=== PATIENT | female | born 1960 | race Caucasian/White ===

== ENCOUNTER 2024-10-07 10:25 | Observation (INO) | payer BC ==
[2024-10-07 11:19] LABS: Basophils % (A) 0 %; Eosinophils # (A) 0.1 k/uL (0-0.7); Eosinophils % (A) 1 %; HCT 48.1 % (34.0-46.0); HGB 15.4 gm/dL (11.4-16.0); Lymphocytes # (A) 1.3 k/uL (1.0-4.8); Lymphocytes % (A) 19 %; MCH 30.1 pg (25.0-35.0); MCV 93.9 fL (80.0-100.0); Mean Platelet Volume 8.5; Monocytes # (A) 0.5 k/uL (0-1.0); Monocytes % (A) 7 %; Neutrophils # (A) 4.9 k/uL (1.3-7.7); Neutrophils % (A) 71 %; Platelet Count 227 k/uL (150-450); RBC 5.12 m/uL (3.80-5.40); RDW 12.7 % (11.5-15.5); WBC 6.9 k/uL (3.8-10.6)
[2024-10-07 11:36] LABS: ALT 20 U/L (4-34); AST 29 U/L (14-36); African American GFR (CKD) 50 (>60 ml/min/1.73 sqM); Albumin 4.6 g/dL (3.5-5.0); Alkaline Phosphatase 63 U/L (38-126); Anion Gap 15 mmol/L; Blood Urea Nitrogen 19 mg/dL (7-17); Calcium 9.2 mg/dL (8.4-10.2); Carbon Dioxide 24 mmol/L (22-30); Chloride 97 mmol/L (98-107); Glucose 170 mg/dL (74-99); Magnesium 2.1 mg/dL (1.6-2.3); Non-African American GFR(CKD) 44 (>60 ml/min/1.73 sqM); Potassium 3.6 mmol/L (3.5-5.1); Sodium 136 mmol/L (137-145); Total Bilirubin 0.8 mg/dL (0.2-1.3)
[2024-10-07 11:55] LABS: Influenza A Detected (Not Detectd); Influenza B Not Detected (Not Detectd); RSV Not Detected (Not Detectd)
[2024-10-07 11:57] LABS: Partial Thromboplastin Time 26.1 sec (22.0-30.0); Prothrombin Time 10.7 sec (10.0-12.5)
--- NOTE | 2024-10-07 12:27 | XR ---
EXAMINATION TYPE: XR chest 2V DATE OF EXAM: 10/07/2024 10:53 AM COMPARISON: 05-29 CLINICAL INDICATION: Female, 64 years old with history of dysrhythmia, TECHNIQUE: XR chest 2V view(s) obtained. FINDINGS: The heart size is normal. The pulmonary vasculature is normal. Minimal left basilar infiltrate is present likely on the basis of atelectasis.. IMPRESSION: 1. Minimal left basilar subsegmental atelectasis. [facility], , 10/07/2024 12:05 PM [facility]ITALAdilson
--- NOTE | 2024-10-07 13:36 | ED ---
Arrhythmia/Palpitations HPI - General Chief Complaint: Arrhythmia/Palpitations Stated Complaint: Afib Time Seen by Provider: 10/07/24 10:35 Source: patient Mode of arrival: ambulatory Limitations: no limitations - History of Present Illness Initial Comments: 64-year-old female with past medical history of asthma who presents the emergency department from her primary care office. Patient states that she has have cough and congestion for the past couple of days. Was concern for pneumonia exacerbating her asthma. States she has been doing a albuterol t reatment every 2 hours[address] She [address] into [address] Vanegas office and they found that the patient was in A-fib with RVR. Patient has no history of. Patient had no clue that she was in A-fib. She denies having any chest pain. Patient transferred to the hospital for this by the time she arrived she is already out of A-fib. Patient denies history of high cholesterol, hypertension, diabetes. States that asthma is her only diagnosis. She admits to a product of a cough. States she had fevers a couple of days ago. Denies any additional symptoms. No other alleviating, precipitating modifying factors - Related Data Home Medications Medication Instructions Recorded Confirmed Albuterol Inhaler [Ventolin Hfa 2 puff INHALATION RT-Q4H PRN 05/11/15 10/07/24 Inhaler] Cholecalciferol [Vitamin D3 (125 125 mcg PO DAILY 10/07/24 10/07/24 Mcg = 5000 Iu)] Fluticasone Propion/Salmeterol 1 puff INHALATION RT-BID 10/07/24 10/07/24 [Fluticasone-Salmeterol 250-50] Rosuvastatin Calcium [Crestor] 5 mg PO MOWEFR 10/07/24 10/07/24 Previous Rx's Medication Instructions Recorded Metoprolol Succinate (ER) [Toprol 25 mg PO DAILY 14 Days #14 tab 10/08/24 XL] Oseltamivir [Tamiflu] 30 mg PO BID 4 Days #8 cap 10/08/24 methylPREDNISolone Dose Pack 4 mg PO DIRECTED #1 packet 10/08/24 [Medrol Dose Pack] Allergies Allergy/AdvReac Type Severity Reaction Status Date / Time Penicillins Allergy Unknown Verified 10/07/24 13:23 Review of Systems ROS Statement: Those systems with pertinent positive or pertinent negative responses have been documented in the HPI. ROS Other: All systems not noted in ROS Statement are negative. Past Medical History Past Medical History: Asthma, Diabetes Mellitus, Hyperlipidemia Additional Past Medical History / Comment(s): NIDDM History of Any Multi-Drug Resistant Organisms: None Reported Past Surgical History: No Surgical Hx Reported Past Psychological History: No Psychological Hx Reported Smoking Status: Never smoker Past Alcohol Use History: Rare Past Drug Use History: Marijuana General Exam Limitations: no limitations General appearance: alert, in no apparent distress Head exam: Present: atraumatic, normocephalic, normal inspection Eye exam: Present: normal appearance, PERRL, EOMI. Absent: scleral icterus, conjunctival injection, periorbital swelling ENT exam: Present: normal exam, mucous membranes moist Neck exam: Present: normal inspection. Absent: tenderness, meningismus, lymphadenopathy Respiratory exam: Present: wheezes. Absent: respiratory distress, rales, rhonchi, stridor Cardiovascular Exam: Present: regular rate, normal rhythm, normal heart sounds. Absent: systolic murmur, diastolic murmur, rubs, gallop, clicks GI/Abdominal exam: Present: soft, normal bowel sounds. Absent: distended, tenderness, guarding, rebound, rigid Extremities exam: Present: normal inspection, full ROM, normal capillary refill. Absent: tenderness, pedal edema, joint swelling, calf tenderness Back exam: Present: normal inspection Neurological exam: Present: alert, oriented X3, CN II-XII intact Psychiatric exam: Present: normal affect, normal mood Skin exam: Present: warm, dry, intact, normal color. Absent: rash Course Vital Signs 10/07/24 10/07/24 10/07/24 10:32 10:52 11:56 Temperature 97.8 F Pulse Rate 100 85 85 Respiratory 18 18 18 Rate Blood Pressure 115/79 105/70 O2 Sat by Pulse 94 L 95 Oximetry 10/07/24 10/07/24 10/07/24 12:44 13:01 15:16 Temperature Pulse Rate 75 79 88 Respiratory 16 16 Rate Blood Pressure 102/68 107/85 O2 Sat by Pulse 95 96 Oximetry 10/07/24 10/07/24 10/07/24 15:23 15:50 19:48 Temperature 98.2 F Pulse Rate 86 80 78 Respiratory 18 16 Rate Blood Pressure 105/62 105/65 O2 Sat by Pulse 95 91 L Oximetry 10/07/24 10/07/24 10/07/24 19:51 20:03 22:09 Temperature Pulse Rate 74 75 68 Respiratory 18 Rate Blood Pressure 109/71 O2 Sat by Pulse 93 L Oximetry Medical Decision Making - Medical Decision Making Was pt. sent in by a medical professional or institution (, [facility], BUGGY OPERATOR, urgent care, hospital, or group home...) When possible be specific @ -Patient sent in from her primary care office Did you speak to anyone other than the patient for history (EMS, parent, family, police, friend...)? What history was obtained from this source @ -No Did you review nursing and triage notes (agree or disagree)? Why? @ -I reviewed and agree with nursing and triage notes Were old charts reviewed (outside hosp., previous admission, EMS record, old EKG, old radiological studies, urgent care reports/EKG's, group home records)? Report findings @ -I reviewed the EKG from the office Differential Diagnosis (chest pain, altered mental status, abdominal pain women, abdominal pain men, vaginal bleeding, weakness, fever, dyspnea, syncope, headache, dizziness, GI bleed, back pain, seizure, CVA, palpatations, mental h ealth, musculoskeletal)? @ -Differential Palpitations Ventricular arrhythmias, atrial arrhythmias, myocardial infarction, anemia, thyrotoxicosis, electrolyte imbalance, hypokalemia, pulmonary embolism, pulmonary disease, drugs, alcohol, anxiety, stress.... This is not meant to be an all-inclusive list. EKG interpreted by me (3pts min.). @ -Yes and demonstrates sinus rhythm with a rate of 93. OH interval 149. QRS 101. QTc of 392. Inverted T waves with mild ST depression 2, 3. No acute ST segment elevation. Review of the EKG from the office demonstrates A-fib with a rate of 154. ST depression likely rate dependent X-rays interpreted by me (1pt min.). @ -Yes which demonstrates no acute process CT interpreted by me (1pt min.). @ -None done U/S interpreted by me (1pt. min.). @ -None done What testing was considered but not performed or refused? (CT, X-rays, U/S, labs)? Why? @ -None What meds were considered but not given or refused? Why? @ -None Did you discuss the management of the patient with other professionals (professionals i.e. DrJg, PA, BUGGY OPERATOR, lab, RT, psych nurse, social media coordinator, habilitation assistant, teacher, operations officer, casework supervisor)? Give summary @ -Spoke with Dr. Cano about the patient Was smoking cessation discussed for >3mins.? @ -No Was critical care preformed (if so, how long)? @ -No Were there social determinants of health that impacted care today? How? (Ho melessness, low income, unemployed, alcoholism, drug addiction, transportation, low edu. Level, literacy, decrease access to med. care, penitentiary, rehab)? @ -No Was there de-escalation of care discussed even if they declined (Discuss DNR or withdrawal of care, Hospice)? DNR status @ -No What co-morbidities impacted this encounter? (DM, HTN, Smoking, COPD, CAD, Cancer, CVA, ARF, Chemo, Hep., AIDS, mental health diagnosis, sleep apnea, morbid obesity)? @ -Asthma Was patient admitted / discharged? Hospital course, mention meds given and route, prescriptions, significant lab abnormalities, going to OR and other pertinent info. @ -Upon arrival patient seen and evaluated in bed 22. Thorough history and physical exam was performed. Patient has already converted out of A-fib. Laboratory studies are conducted. Chest x-ray was performed. Patient was provided with a breathing treatment and a dose of Solu-Medrol. Results are discussed with the patient. She does originally want to go home. I spoke with Dr. Cano. He states that the patient needs echo, Holter monitoring within the next week and needs to follow-up with the cardiology office. States that the cardiology follow-up must be within the next week. I did discuss this with the patient. She does feel as if she will have issues following up within this timeframe. She was agreeable to being admitted to the hospital overnight to see cardiology. Dr. Cano did recommend that I start the patient on amiodarone. Patient will continue receiving breathing treatments and steroids for her asthma exacerbation. Tamiflu is ordered for her influenza A. I spoke with Dr. Alvarado for the admission Undiagnosed new problem with uncertain prognosis? @ -No Drug Therapy requiring intensive monitoring for toxicity (Heparin, Nitro, Insulin, Cardizem)? @ -No Were any procedures done? @ -No Diagnosis/symptom? @ -New onset A-fib with RVR, acute asthma exacerbation, influenza A infection Acute, or Chronic, or Acute on Chronic? @ -Acute Uncomplicated (without systemic symptoms) or Complicated (systemic symptoms)? @ -Complicated Side effects of treatment? @ -No Exacerbation, Progression, or Severe Exacerbation? @ -No Poses a threat to life or bodily function? How? (Chest pain, USA, DE, pneumonia, PE, COPD, DKA, ARF, appy, cholecystitis, CVA, Diverticulitis, Homicidal, Suicidal, threat to staff... and all critical care pts) @ -No - Lab Data Result diagrams: 10/08/24 05:53 10/08/24 05:53 Lab Results 10/07/24 10/07/24 10/07/24 Range/Units 10:55 10:55 10:55 WBC 6.9 (3.8-10.6) k/uL RBC 5.12 (3.80-5.40) m/uL Hgb 15.4 (11.4-16.0) gm/dL Hct 48.1 H (34.0-46.0) % MCV 93.9 (80.0-100.0) fL MCH 30.1 (25.0-35.0) pg MCHC 32.0 (31.0-37.0) g/dL RDW 12.7 (11.5-15.5) % Plt Count 227 (150-450) k/uL MPV 8.5 Neutrophils % 71 % Lymphocytes % 19 % Monocytes % 7 % Eosinophils % 1 % Basophils % 0 % Neutrophils # 4.9 (1.3-7.7) k/uL Lymphocytes # 1.3 (1.0-4.8) k/uL Monocytes # 0.5 (0-1.0) k/uL Eosinophils # 0.1 (0-0.7) k/uL Basophils # 0.0 (0-0.2) k/uL PT 10.7 (10.0-12.5) sec INR 1.0 (<1.2) APTT 26.1 (22.0-30.0) sec D-Dimer 0.55 (<0.60) mg/L FEU Sodium 136 L (137-145) mmol/L Potassium 3.6 (3.5-5.1) mmol/L Chloride 97 L (98-107) mmol/L Carbon Dioxide 24 (22-30) mmol/L Anion Gap 15 mmol/L BUN 19 H (7-17) mg/dL Creatinine 1.31 H (0.52-1.04) mg/dL Est GFR (CKD-EPI)AfAm 50 (>60 ml/min/1.73 sqM) Est GFR (CKD-EPI)NonAf 44 (>60 ml/min/1.73 sqM) Glucose 170 H (74-99) mg/dL Calcium 9.2 (8.4-10.2) mg/dL Magnesium 2.1 (1.6-2.3) mg/dL Total Bilirubin 0.8 (0.2-1.3) mg/dL AST 29 (14-36) U/L ALT 20 (4-34) U/L Alkaline Phosphatase 63 (38-126) U/L Troponin I (0.000-0.034) ng/mL Total Protein 7.0 (6.3-8.2) g/dL Albumin 4.6 (3.5-5.0) g/dL TSH 1.970 (0.465-4.680) mIU/L Influenza Type A (PCR) (Not Detectd) Influenza Type B (PCR) (Not Detectd) RSV (PCR) (Not Detectd) SARS-CoV-2 (PCR) (Not Detectd) 10/07/24 10/07/24 Range/Units 10:55 10:55 WBC (3.8-10.6) k/uL RBC (3.80-5.40) m/uL Hgb (11.4-16.0) gm/dL Hct (34.0-46.0) % MCV (80.0-100.0) fL MCH (25.0-35.0) pg MCHC (31.0-37.0) g/dL RDW (11.5-15.5) % Plt Count (150-450) k/uL MPV Neutrophils % % Lymphocytes % % Monocytes % % Eosinophils % % Basophils % % Neutrophils # (1.3-7.7) k/uL Lymphocytes # (1.0-4.8) k/uL Monocytes # (0-1.0) k/uL Eosinophils # (0-0.7) k/uL Basophils # (0-0.2) k/uL PT (10.0-12.5) sec INR (<1.2) APTT (22.0-30.0) sec D-Dimer (<0.60) mg/L FEU Sodium (137-145) mmol/L Potassium (3.5-5.1) mmol/L Chloride (98-107) mmol/L Carbon Dioxide (22-30) mmol/L Anion Gap mmol/L BUN (7-17) mg/dL Creatinine (0.52-1.04) mg/dL Est GFR (CKD-EPI)AfAm (>60 ml/min/1.73 sqM) Est GFR (CKD-EPI)NonAf (>60 ml/min/1.73 sqM) Glucose (74-99) mg/dL Calcium (8.4-10.2) mg/dL Magnesium (1.6-2.3) mg/dL Total Bilirubin (0.2-1.3) mg/dL AST (14-36) U/L ALT (4-34) U/L Alkaline Phosphatase (38-126) U/L Troponin I <0.012 (0.000-0.034) ng/mL Total Protein (6.3-8.2) g/dL Albumin (3.5-5.0) g/dL TSH (0.465-4.680) mIU/L Influenza Type A (PCR) Detected A (Not Detectd) Influenza Type B (PCR) Not Detected (Not Detectd) RSV (PCR) Not Detected (Not Detectd) SARS-CoV-2 (PCR) Not Detected (Not Detectd) Disposition Clinical Impression: New onset a-fib, Influenza A, Asthma exacerbation Disposition: ADMITTED IP TO THIS [facility] Condition: Stable Is patient prescribed a controlled substance at d/c from ED?: No Time of Disposition: 14:30 Decision to Admit Reason: Admit from EC Decision Date: 10/07/24 Decision Time: 14:31
[2024-10-07] MEDS ORDERED: NALOXONE 0.4 MG/ML 1 ML VIAL IV PRN (14:31)
[2024-10-07] MEDS: IPRATROPIUM-ALBUTEROL 3 ML NEB INHALATION SCH (15:14)
[2024-10-07] MEDS: IPRATROPIUM-ALBUTEROL 3 ML NEB INHALATION STA (15:14)
[2024-10-07] MEDS: methylPREDNISolone SOD SUCCI 125 MG/2 ML VIAL IV STA (15:49)
[2024-10-07] MEDS: AMIODARONE 200 MG TAB PO SCH (15:49)
[2024-10-07] MEDS: OSELTAMIVIR 30 MG CAP PO SCH (16:25)
[2024-10-07] MEDS: KETOROLAC 15 MG/ML 1 ML VIAL IVP STA (17:22)
[2024-10-07 22:09] VITALS: RESP 18
[2024-10-08] MEDS ORDERED: IPRATROPIUM-ALBUTEROL 3 ML NEB INHALATION PRN (01:03)
[2024-10-08 05:59] LABS: Glucose,Whole Blood 146 mg/dL (70-110)
[2024-10-08 07:32] LABS: Basophils % (A) 0 %; Eosinophils % (A) 0 %; HGB 14.4 gm/dL (11.4-16.0); Lymphocytes # (A) 0.6 k/uL (1.0-4.8); Lymphocytes % (A) 18 %; MCH 30.1 pg (25.0-35.0); MCHC 31.9 g/dL (31.0-37.0); MCV 94.2 fL (80.0-100.0); Mean Platelet Volume 9.5; Monocytes # (A) 0.2 k/uL (0-1.0); Monocytes % (A) 5 %; Neutrophils # (A) 2.7 k/uL (1.3-7.7); Neutrophils % (A) 75 %; Platelet Count 203 k/uL (150-450); RBC 4.78 m/uL (3.80-5.40); RDW 12.9 % (11.5-15.5); WBC 3.6 k/uL (3.8-10.6)
[2024-10-08 07:44] LABS: African American GFR (CKD) 63 (>60 ml/min/1.73 sqM); Anion Gap 12 mmol/L; Blood Urea Nitrogen 21 mg/dL (7-17); Calcium 9.3 mg/dL (8.4-10.2); Carbon Dioxide 23 mmol/L (22-30); Chloride 99 mmol/L (98-107); Glucose 145 mg/dL (74-99); Non-African American GFR(CKD) 55 (>60 ml/min/1.73 sqM); Potassium 4.4 mmol/L (3.5-5.1); Sodium 134 mmol/L (137-145)
[2024-10-08] MEDS: methylPREDNISolone SOD SUCCI 40 MG/ML 1 ML VIAL IV SCH (08:26)
[2024-10-08] MEDS: IPRATROPIUM-ALBUTEROL 3 ML NEB INHALATION SCH (08:38)
[2024-10-08 10:22] VITALS: TEMP 98.1
--- NOTE | 2024-10-08 11:00 | P.CRDCN ---
History of Present Illness Consult date: 10/08/24 Reason for Consult (text): New onset atrial fibrillation with RVR History of present illness: This is a 64-year-old female with past medical history of asthma. We have been asked to evaluate the patient for new onset A-fib with RVR. Patient was at clinic due to cough with sputum production and congestion for the last couple of days and was concern for pneumonia and exacerbation of asthma. She was also having fevers a couple days prior. While she was in the office she was found to be in A-fib with RVR. She came into [facility] emergency center and by the time she arrived to the emergency center, she had converted ba ck to sinus rhythm. Patient denies lightheadedness, dizziness, or palpitations. Patient was started on oral amiodarone oral. She is also been started on medications for influenza. Blood pressure 105/64, heart rate 59, pulse ox 99% on 2 L nasal cannula. Discussed the dx of afib and need for OP stress test and echo as well as will require anticoagulation down the road. -EKG: #1 atrial fibrillation at 154 beats a minute, #2 sinus rhythm 93 bpm. -Chest x-ray: Minimal left basilar subsegmental atelectasis. -Laboratory studies: WBC 3.6, hemoglobin 14.4. Sodium 134, BUN 21 creatinine 1.09 down from 1.31. Troponin negative x 1. Influenza A detected. -Home cardiac medications: Rosuvastatin 5 mg on Thursday Review Of Systems: At the time of my exam: CONSTITUTIONAL: Denies fever or chills. HEENT: Denies blurred vision, vision changes, or eye pain. Denies hemoptysis CARDIOVASCULAR: Denies chest pain. Denies orthopnea. Denies PND. Denies palpitations RESPIRATORY: Denies shortness of breath. Reports cough with sputum production. GASTROINTESTINAL: Denies abdominal pain. Denies nausea or vomiting. HEMATOLOGIC: Denies bleeding disorders. GENITOURINARY: Denies any blood in urine. SKIN: Denies puritis. Denies rash. Physical examination: Gen: This is a 64-year-old female in no acute distress VS: reviewed HEENT: Head is atraumatic, normocephalic. Pupils equal, round. Sclerae is anicteric. NECK: Supple. No JVD. LUNGS: Clear to auscultation. No wheezes or rhonchi. No intercostal retractions. HEART: Regular rate and rhythm. No murmur. ABDOMEN: Soft No tenderness. EXTREMITIES: No pedal edema. No calf tenderness. NEUROLOGICAL: Patient is awake, alert and oriented x3. Assessment: Paroxysmal atrial fibrillation with RVR, converted to sinus rhythm on her own Influenza A Asthma history Plan: Discontinue amiodarone and start metoprolol Continue influenza treatment Obtain 2-D echocardiogram and Doppler study to assess cardiac structure and function Patient is cleared for discharge from cardiology perspective and does not have to wait for echocardiogram as this can be done in the office. Patient will follow up with Dr. Cano in 1-2 weeks. Thank you kindly for this consultation. Nurse practitioner note has been reviewed, I agree with documented findings and plan of care. Patient was seen and examined. Past Medical History Past Medical History: Asthma, Diabetes Mellitus, Hyperlipidemia Additional Past Medical History / Comment(s): NIDDM History of Any Multi-Drug Resistant Organisms: None Reported Past Surgical History: No Surgical Hx Reported Past Anesthesia/Blood Transfusion Reactions: No Reported Reaction Past Psychological History: No Psychological Hx Reported Smoking Status: Never smoker Past Alcohol Use History: Rare Past Drug Use History: Marijuana Medications and Allergies Home Medications Medication Instructions Recorded Confirmed Type Albuterol Inhaler [Ventolin 2 puff INHALATION RT-Q4H PRN 05/11/15 10/07/24 History Inhaler] Cholecalciferol [Vitamin D3 (125 125 mcg PO DAILY 10/07/24 10/07/24 History Mcg = 5000 Iu)] Fluticasone Propion/Salmeterol 1 puff INHALATION RT-BID 10/07/24 10/07/24 History [Fluticasone-Salmeterol 250-50] Rosuvastatin Calcium [Crestor] 5 mg PO MOWEFR 10/07/24 10/07/24 History Allergies Allergy/AdvReac Type Severity Reaction Status Date / Time Penicillins Allergy Unknown Verified 10/07/24 13:23 Physical Exam Vitals: Vital Signs Temp Pulse Pulse Resp BP BP Pulse Ox 10/08/24 04:00 98.2 F 59 L 18 105/64 99 10/08/24 01:12 67 18 10/08/24 00:14 72 10/08/24 00:04 70 10/07/24 23:15 98.1 F 67 18 106/67 96 10/07/24 23:05 67 18 10/07/24 22:45 98.1 F 67 18 106/67 96 10/07/24 22:09 68 18 109/71 93 L 10/07/24 20:03 75 10/07/24 19:51 74 10/07/24 19:48 78 16 105/65 91 L 10/07/24 15:50 98.2 F 80 18 105/62 95 10/07/24 15:23 86 10/07/24 15:16 88 10/07/24 13:01 79 16 107/85 96 10/07/24 12:44 75 16 102/68 95 10/07/24 11:56 85 18 105/70 95 10/07/24 10:52 85 18 10/07/24 10:32 97.8 F 100 18 115/79 94 L Intake and Output 10/07/24 10/08/24 10/08/24 22:59 06:59 14:59 Intake Total 540 Balance 540 Intake: Oral 540 Other: Voiding Method Toilet # Voids 0 Weight 90.718 kg 91.5 kg Results 10/08/24 05:53 10/08/24 05:53 Cardiac Enzymes 10/07/24 10/07/24 Range/Units 10:55 10:55 AST 29 (14-36) U/L Troponin I <0.012 (0.000-0.034) ng/mL Coagulation 10/07/24 Range/Units 10:55 PT 10.7 (10.0-12.5) sec APTT 26.1 (22.0-30.0) sec CBC 10/07/24 10/08/24 Range/Units 10:55 05:53 WBC 6.9 3.6 L (3.8-10.6) k/uL RBC 5.12 4.78 (3.80-5.40) m/uL Hgb 15.4 14.4 (11.4-16.0) gm/dL Hct 48.1 H 45.0 (34.0-46.0) % Plt Count 227 203 (150-450) k/uL Comprehensive Metabolic Panel 10/07/24 10/08/24 Range/Units 10:55 05:53 Sodium 136 L 134 L (137-145) mmol/L Potassium 3.6 4.4 (3.5-5.1) mmol/L Chloride 97 L 99 (98-107) mmol/L Carbon Dioxide 24 23 (22-30) mmol/L BUN 19 H 21 H (7-17) mg/dL Creatinine 1.31 H 1.09 H (0.52-1.04) mg/dL Glucose 170 H 145 H (74-99) mg/dL Calcium 9.2 9.3 (8.4-10.2) mg/dL AST 29 (14-36) U/L ALT 20 (4-34) U/L Alkaline Phosphatase 63 (38-126) U/L Total Protein 7.0 (6.3-8.2) g/dL Albumin 4.6 (3.5-5.0) g/dL Current Medications Generic Name Dose Route Start Last Admin Trade Name Freq PRN Reason Stop Dose Admin Albuterol/Ipratropium 3 ml 10/08/24 08:00 Ipratropium-Albuterol 3 Ml Neb INHALATION RT-QID DAVID Albuterol/Ipratropium 3 ml 10/08/24 01:03 Ipratropium-Albuterol 3 Ml Neb INHALATION RT-Q2H PRN Shortness Of Breath Or Wheezing Amiodarone HCl 200 mg 10/07/24 14:48 10/07/24 20:37 Amiodarone 200 Mg Tab PO 200 mg BID DAVID Administration Methylprednisolone Sodium Succinate 40 mg 10/08/24 08:00 Methylprednisolone Sod Succi 40 Mg/Ml 1 Ml Vial IV Q8HR DAVID Naloxone HCl 0.2 mg 10/07/24 14:31 Naloxone 0.4 Mg/Ml 1 Ml Vial IV Q2M PRN Opioid Reversal Oseltamivir Phosphate 30 mg 10/07/24 15:00 10/07/24 20:52 Oseltamivir 30 Mg Cap PO 10/11/24 21:01 30 mg BID DAVID Administration Protocol Intake and Output 10/07/24 10/08/24 10/08/24 22:59 06:59 14:59 Intake Total 540 Balance 540 Intake: Oral 540 Other: Voiding Method Toilet # Voids 0 Weight 90.718 kg 91.5 kg 10/08/24 05:53 10/08/24 05:53
[2024-10-08] MEDS: METOPROLOL SUCCINATE (ER) 25 MG TAB.ER.24H PO SCH (11:08)
[2024-10-08 11:50] LABS: Glucose,Whole Blood 209 mg/dL (70-110)
[2024-10-08 12:22] VITALS: BP 120/70; PULSE 64
[2024-10-08] MEDS ORDERED: DEXTROSE 50% SYRINGE 50 ML IVP PRN ×2 (13:22)
--- NOTE | 2024-10-08 13:23 | P.HPIM ---
History of Present Illness H&P Date: 10/08/24 Chief Complaint: Cough Patient is a 62 year old female with past medical history of asthma, CKD was sent to the ED by her PCP for new onset A-fib with RVR. Patient states that she had a fever 4 days ago shortness of breath and congestion. She goes to her nebulizer and her rescue inhaler at home but that did not help with her symptoms. Yesterday she went to see her PCP, Dr. Vanegas. Her PCP found her to have new onset atrial fibrillation with a rapid ventricular rate. There was also concern for pneumonia. She was then sent to the ED here but by the time she arrived at the hospital she had converted back to sinus rhythm. Associated with that she reports a productive cough with greenish sputum. Currently she denies any fever. She denies experiencing palpitations, fainting, lightheadedness or dizziness. Denies fever, chills, chest pain, palpitations, abdominal pain, nausea, vomiting, hematuria, dysuria, hematochezia, melena, headache, slurred speech, numbness, tingling, dizziness, lightheadedness, blurred vision, double vision. ED documentation reviewed. In the ED patient was treated with amiodarone 200 mg, DuoNeb, ketorolac 15 mg, oseltamavir 30 mg, m ethylprednisolone 125 mg. Vitals on admission T 97.8 F, OR 100 bpm, RR 18, BP 115/79, oxygen saturation 94% on room air EKG outpatient- independently interpreted as atrial fibrillation with rapid ve ntricular rate of 154 bpm EKG inpatient independently interpreted as sinus rhythm, rate 93 bpm, QTc 392 ms Chest x-ray shows minimal left basilar subsegmental atelectasis Labs on admission show WBC 6.9, hemoglobin 15.4, platelet count 127, INR D-dimer 0.25, sodium 136, potassium 3.6, BUN 19, creatinine 1.31, magnesium 2.1, TSH 1.970, troponin I <0.012 Respiratory panel is positive for influenza type A Review of systems: Pertinent positives and negatives as discussed in HPI, a complete review of systems was performed and all other systems are negative. Social history: Tobacco: Never smoker Alcohol: Rarely Recreational drugs: Marijuana Travel: No recent travel history Sick contacts: None Physical examination: Vital signs reviewed General: nontoxic, no distress, appears at stated age Derm: warm, dry, intact Head: atraumatic, normocephalic, symmetric Eyes: EOMI, anicteric sclera Mouth: no lip lesion, mucus membranes moist Cardiovascular: S1 S2 reg, no murmur Lungs: CTA bilateral, no rhonchi, no rales, no accessory muscle use Abdominal: soft, non-tender to palpation Extremities: No cyanosis, clubbing, or pedal edema. Neuro: Alert, Oriented, Gross neurological examination did not reveal any focal deficits. Psych: well appearing, appropriate affect Assessment/Plan: Patient is a 62 year old female with past medical history of asthma, CKD was sent to the ED by her PCP for new onset A-fib with RVR along with concerns for pneumonia. Active: #. New onset paroxysmal atrial fibrillation with rapid ventricular rate, currently converted to sinus rhythm EKG outpatient- independently interpreted as atrial fibrillation with rapid ventricular rate of 154 bpm EKG inpatient independently interpreted as sinus rhythm, rate 93 bpm, QTc 392 ms Patient received amiodarone 200 mg in the ED, Amiodarone now discontinued Continue metoprolol 25 mg p.o. daily Obtain echocardiogram Continue telemetry monitoring Cardiology is consulted, recommend patient is cleared for discharge from cardiology perspective and does not have to wait for echocardiogram as this can be done in the office #. Acute hypoxic respiratory failure #. Asthma exacerbation #. Acute Influenza A infection Chest x-ray shows minimal left basilar subsegmental atelectasis Respiratory panel is positive for influenza type A Continue DuoNeb 4 times daily and every 2 hours as needed, Solu-Medrol 40 mg IV every 8 hours Continue oseltamivir 30 mg p.o. twice daily, total 10 doses #. Mild hyponatremia Na 136 on admission Monitor BMP #. Hypokalemia, resolved K 3.6 on admission Now improved to 4.4 Chronic: #. Hyperlipidemia #. CKD stage IIIa #. Hyperglycemia Contiue home med Rosuvastatin 5 mg PO Thursday, Thursday, Thursday and insulin sliding scale F: None E: Replete as required N: Heart healthy diet GI prophylaxis: Pantoprazole 40 mg PO daily The patient is admitted with an anticipated less than 2 midnight stay for evaluation of Afib. CODE STATUS: FULL CODE Discussed with: Patient Anticipated discharge place: Home Past Medical History Past Medical History: Asthma, Diabetes Mellitus, Hyperlipidemia Additional Past Medical History / Comment(s): NIDDM History of Any Multi-Drug Resistant Organisms: None Reported Past Surgical History: No Surgical Hx Reported Past Anesthesia/Blood Transfusion Reactions: No Reported Reaction Past Psychological History: No Psychological Hx Reported Smoking Status: Never smoker Past Alcohol Use History: Rare Past Drug Use History: Marijuana Medications and Allergies Home Medications Medication Instructions Recorded Confirmed Type Albuterol Inhaler [Ventolin 2 puff INHALATION RT-Q4H PRN 05/11/15 10/07/24 History Inhaler] Cholecalciferol [Vitamin D3 (125 125 mcg PO DAILY 10/07/24 10/07/24 History Mcg = 5000 Iu)] Fluticasone Propion/Salmeterol 1 puff INHALATION RT-BID 10/07/24 10/07/24 History [Fluticasone-Salmeterol 250-50] Rosuvastatin Calcium [Crestor] 5 mg PO MOWEFR 10/07/24 10/07/24 History Allergies Allergy/AdvReac Type Severity Reaction Status Date / Time Penicillins Allergy Unknown Verified 10/07/24 13:23 Physical Exam Vitals: Vital Signs Temp Pulse Pulse Resp BP BP Pulse Ox 10/08/24 08:53 73 10/08/24 08:39 70 10/08/24 08:00 98.1 F 69 18 126/70 96 10/08/24 04:00 98.2 F 59 L 18 105/64 99 10/08/24 01:12 67 18 10/08/24 00:14 72 10/08/24 00:04 70 10/07/24 23:15 98.1 F 67 18 106/67 96 10/07/24 23:05 67 18 10/07/24 22:45 98.1 F 67 18 106/67 96 10/07/24 22:09 68 18 109/71 93 L 10/07/24 20:03 75 10/07/24 19:51 74 10/07/24 19:48 78 16 105/65 91 L 10/07/24 15:50 98.2 F 80 18 105/62 95 10/07/24 15:23 86 10/07/24 15:16 88 10/07/24 13:01 79 16 107/85 96 10/07/24 12:44 75 16 102/68 95 10/07/24 11:56 85 18 105/70 95 Intake and Output 10/07/24 10/08/24 10/08/24 22:59 06:59 14:59 Intake Total 540 240 Balance 540 240 Intake: Oral 540 240 Other: Voiding Method Toilet Toilet # Voids 0 Weight 90.718 kg 91.5 kg Results CBC & Chem 7: 10/08/24 05:53 10/08/24 05:53 Labs: Abnormal Lab Results - Last 24 Hours (Table) 10/07/24 10/08/24 10/08/24 Range/Units 10:55 05:53 05:53 WBC 3.6 L (3.8-10.6) k/uL Lymphocytes # 0.6 L (1.0-4.8) k/uL Sodium 134 L (137-145) mmol/L BUN 21 H (7-17) mg/dL Creatinine 1.09 H (0.52-1.04) mg/dL Glucose 145 H (74-99) mg/dL POC Glucose (mg/dL) (70-110) mg/dL Influenza Type A (PCR) Detected A (Not Detectd) 10/08/24 10/08/24 Range/Units 05:55 11:49 WBC (3.8-10.6) k/uL Lymphocytes # (1.0-4.8) k/uL Sodium (137-145) mmol/L BUN (7-17) mg/dL Creatinine (0.52-1.04) mg/dL Glucose (74-99) mg/dL POC Glucose (mg/dL) 146 H 209 H (70-110) mg/dL Influenza Type A (PCR) (Not Detectd) Thrombosis Risk Factor Assmnt - Choose All That Apply Any of the Below Risk Factors Present?: Yes Each Factor Represents 1 point: Age 41-60 years, Obesity (BMI >25) Other Risk Factors: No Other congenital or acquired thrombophilia - If yes, enter type in comment: No Thrombosis Risk Factor Assessment Total Risk Factor Score: 2 Thrombosis Risk Factor Assessment Level: Low Risk
--- NOTE | 2024-10-08 13:31 | P.DS ---
Providers Date of admission: 10/07/24 14:31 Expected date of discharge: 10/08/24 Attending physician: Lisseth Dowell Consults: 10/07/24 14:31 Consult Physician Urgent Consulting Provider: [facility] Consult Reason/Comments: new onset afib with rvr Do you want consulting provider notified?: Already Contacted Primary care physician: Kit Vanegas [facility] Course: Discharge diagnosis: New onset paroxysmal atrial fibrillation with rapid ventricular rate, currently converted to sinus rhythm Acute hypoxic respiratory failure Asthma exacerbation Acute Influenza A infection Mild hyponatremia Hypokalemia, resolved Hyperlipidemia CKD stage IIIa Hyperglycemia Hospital Course: Patient is a 62 year old female with past medical history of asthma, CKD was sent to the ED by her PCP for new onset A-fib with RVR. Patient states that she had a fever 4 days ago shortness of breath and congestion. She goes to her nebulizer and her rescue inhaler at home but that did not help with her symptoms. Yesterday she went to see her PCP, Dr. Vanegas. Her PCP found her to have new onset atrial fibrillation with a rapid ventricular rate. There was also concern for pneumonia. She was then sent to the ED here but by the time she arrived at the hospital she had converted back to sinus rhythm. Associated with that she reports a productive cough with greenish sputum. Currently she denies any fever. She denies experiencing palpitations, fainting, lightheadedness or dizziness. Denies fever, chills, chest pain, palpitations, abdominal pain, nausea, vomiting, hematuria, dysuria, hematochezia, melena, headache, slurred speech, numbness, tingling, dizziness, lightheadedness, blurred vision, double vision. ED documentation reviewed. In the ED patient was treated with amiodarone 200 mg, DuoNeb, ketorolac 15 mg, oseltamavir 30 mg, methylprednisolone 125 mg. Vitals on admission T 97.8 F, HI 100 bpm, RR 18, BP 115/79, oxygen saturation 94% on room air. EKG outpatient- independently interpreted as atrial fibrillation with rapid ventricular rate of 154 bpm. EKG inpatient independently interpreted as sinus rhythm, rate 93 bpm, QTc 392 ms. Chest x-ray shows minimal left basilar subsegmental atelectasis. Labs on admission show WBC 6.9, hemoglobin 15.4, platelet count 127, INR D-dimer 0.25, sodium 136, potassium 3.6, BUN 19, creatinine 1.31, magnesium 2.1, TSH 1.970, troponin I <0.012. Respiratory panel is positive for influenza type A Patient seen at bedside today and is feeling good and excited about discharge. Patient will be discharged today and is given a script for Metoprolol 25 mg, Oseltamivir 30 mg, Medrol dose pack. Patient is advised to be compliant with medications. Patient is advised to follow-up with PCP in 1-2 days and clocksmith in 1 week. Vital signs are reviewed and stable General: nontoxic, no distress, appears at stated age Derm: warm, dry, intact Head: atraumatic, normocephalic, symmetric Eyes: EOMI, anicteric sclera Mouth: no lip lesion, mucus membranes moist Cardiovascular: S1 S2 reg, no murmur Lungs: CTA bilateral, no rhonchi, no rales, no accessory muscle use Abdominal: soft, non-tender to palpation Extremities: No cyanosis, clubbing, or pedal edema. Neuro: Alert, Oriented, Gross neurological examination did not reveal any focal deficits. Psych: well appearing, appropriate affect A total of 30 minutes of time were spent preparing this complex discharge summary. Patient was discharged on 10/08/24 at 1330. Patient Condition at Discharge: Stable Plan - Discharge Summary New Discharge Prescriptions: New Metoprolol Succinate (ER) [Toprol XL] 25 mg PO DAILY 14 Days #14 tab Oseltamivir [Tamiflu] 30 mg PO BID 4 Days #8 cap methylPREDNISolone Dose Pack [Medrol Dose Pack] 4 mg PO DIRECTED #1 packet Continue Albuterol Inhaler [Ventolin Hfa Inhaler] 2 puff INHALATION RT-Q4H PRN PRN Reason: Shortness Of Breath Rosuvastatin Calcium [Crestor] 5 mg PO MOWEFR Cholecalciferol [Vitamin D3 (125 Mcg = 5000 Iu)] 125 mcg PO DAILY Fluticasone Propion/Salmeterol [Fluticasone-Salmeterol 250-50] 1 puff INHALATION RT-BID Discharge Medication List Albuterol Inhaler [Ventolin Hfa Inhaler] 2 puff INHALATION RT-Q4H PRN 05/11/15 [History] Cholecalciferol [Vitamin D3 (125 Mcg = 5000 Iu)] 125 mcg PO DAILY 10/07/24 [History] Fluticasone Propion/Salmeterol [Fluticasone-Salmeterol 250-50] 1 puff INHALATION RT-BID 10/07/24 [History] Rosuvastatin Calcium [Crestor] 5 mg PO MOWEFR 10/07/24 [History] Metoprolol Succinate (ER) [Toprol XL] 25 mg PO DAILY 14 Days #14 tab 10/08/24 [Rx] Oseltamivir [Tamiflu] 30 mg PO BID 4 Days #8 cap 10/08/24 [Rx] methylPREDNISolone Dose Pack [Medrol Dose Pack] 4 mg PO DIRECTED #1 packet 10/08/24 [Rx] Follow up Appointment(s)/Referral(s): Kit Vanegas DO [Primary Care Provider] - 1-2 days Dirk Cano DO [STAFF PHYSICIAN] - 1 Week Discharge Disposition: HOME SELF-CARE
--- NOTE | 2024-10-08 15:40 | CA ---
Transthoracic Echo Report Name: Tracee Ray Age: 64 Gender: F : 1960 Exam Date: 10/08/2024 12:38 Exam Location: [place] [facility] Ht (in): 68 Wt (lb): 201 Ordering Physician: Eve Bell Attending/Referring Phys: [id number], Arabella Mobility Developer Alexandria Ramsey RDCS Procedure CPT: Indications: LVF Cardiac Hx: Technical Quality: Fair Contrast 1: Total Dose (mL): Contrast 2: Total Dose (mL): MEASUREMENTS (Male / Female) Normal Values 2D ECHO LV Diastolic Diameter PLAX 5.1 cm 4.2 - 5.9 / 3.9 - 5.3 cm LV Systolic Diameter PLAX 3.7 cm IVS Diastolic Thickness 0.9 cm 0.6 - 1.0 / 0.6 - 0.9 cm LVPW Diastolic Thickness 0.9 cm 0.6 - 1.0 / 0.6 - 0.9 cm LV Relative Wall Thickness 0.4 RV Internal Dim ED PLAX 2.9 cm LA Systolic Diameter LX 3.2 cm 3.0 - 4.0 / 2.7 - 3.8 cm LV Diastolic Volume MOD 4C 83.8 cm??? LV Systolic Volume MOD 4C 37.4 cm??? LV Ejection Fraction MOD 4C 55.4 % LV Cardiac Index MOD 4C 1292.8 cm???/min???m??? LV Diastolic Length 4C 7.5 cm LV Systolic Length 4C 6.3 cm LV Diastolic Volume MOD 2C 88.2 cm??? LV Systolic Volume MOD 2C 37.0 cm??? LV Ejection Fraction MOD 2C 58.1 % LV Cardiac Index MOD 2C 1427.2 cm???/min???m??? LV Diastolic Length 2C 7.6 cm LV Systolic Length 2C 6.0 cm LA Volume 61.5 cm??? 18 - 58 / 22 - 52 cm??? LA Volume Index 29.0 cm???/m??? 16 - 28 cm???/m??? M-MODE Aortic Root Diameter MM 3.7 cm DOPPLER AV Peak Velocity 142.3 cm/s AV Peak Gradient 8.1 mmHg MV Area PHT 3.8 cm??? Mitral E Point Velocity 91.7 cm/s Mitral A Point Velocity 85.8 cm/s Mitral E to A Ratio 1.1 MV Deceleration Time 199.7 ms FINDINGS Left Ventricle Left ventricular ejection fraction is estimated at 55-60 %. Left ventricular cavity size normal. Left ventricular wall thickness normal. No obvious regional wall motion abnormalities. Right Ventricle Normal right ventricular size and function. Unable to estimate the right ventricular systolic pressure. Right Atrium Normal right atrial size. No right atrial thrombus or mass seen. Left Atrium Mildly increased left atrial volume. Mildly increased left atrial area. No left atrial thrombus or mass present. Mitral Valve Mitral valve thickened. No evidence for mitral valve prolapse. No mitral stenosis. Trace mitral regurgitation. Aortic Valve Trileaflet aortic valve. No aortic valve stenosis or regurgitation. Tricuspid Valve Structurally normal tricuspid valve. No tricuspid stenosis, regurgitation or prolapse. Pulmonic Valve Pulmonic valve not well visualized. Trace pulmonic regurgitation. Pericardium No pericardial or pleural effusion. Aorta Normal size aortic root and proximal ascending aorta. CONCLUSIONS Left ventricular ejection fraction 55-60% Mildly dilated left atrium Trace mitral regurgitation No pericardial effusion Previewed by: Dr. Dirk Cano DO (Electronically Signed) Final Date: 08 October 2024 15:39
[2024-10-08] MEDS ORDERED: INSULIN LISPRO (HumaLOG) 100 UNIT/ML 10 mL VL SQ SCH (17:30)
[2024-10-09] MEDS ORDERED: PANTOPRAZOLE 40 MG TABLET PO SCH (07:30)
[2024-10-10] MEDS ORDERED: ATORVASTATIN 10 MG TAB PO SCH (09:00)
== END 2024-10-08 15:00 | disposition home or self-care (01) ==
LOC: EC 10:25 → 3SCARD 14:31
PROVIDERS: ADMIT Hospitalist; ATTEND Hospitalist
DX: I48.0 Paroxysmal atrial fibrillation (principal); J96.01 Acute respiratory failure with hypoxia; J45.901 Unspecified asthma with (acute) exacerbation; J10.1 Influenza due to other identified influenza virus with other respiratory manifestations; E87.1 Hypo-osmolality and hyponatremia; E87.6 Hypokalemia; E78.5 Hyperlipidemia, unspecified; E11.65 Type 2 diabetes mellitus with hyperglycemia; N18.31 Chronic kidney disease, stage 3a; E11.22 Type 2 diabetes mellitus with diabetic chronic kidney disease; J98.11 Atelectasis; E66.9 Obesity, unspecified; Z68.30 Body mass index [BMI] 30.0-30.9, adult; Z79.51 Long term (current) use of inhaled steroids; Z79.899 Other long term (current) drug therapy; Z88.0 Allergy status to penicillin; Z11.52 Encounter for screening for COVID-19; Z11.59 Encounter for screening for other viral diseases
CPT/HCPCS: 96376; 96374; 96375; 99285; 36415; 94640 ×4; 93005; 93306; 85379; 80053; 80048; 84443; 83735; 84484; 85025 ×2; 85610; 85730; 87636; 71046; G0378 ×2; J1885; J2919 ×2

== ENCOUNTER → 2024-10-21 | Outpatient (CLI) | payer BC ==
[2024-10-21 07:49] VITALS: BP 130/77; PULSE 67; RESP 16; TEMP 98.3
--- NOTE | 2024-10-21 08:57 | P.GSCN ---
History of Present Illness Consult date: 10/21/24 Reason for Consult: Invasive lobular carcinoma left breast Requesting physician: Kit Vanegas History of present illness: Tracee is a 64-year-old female seen in consultation for Dr. Vanegas with her sister regarding a biopsy-proven left breast invasive lobular carcinoma. She underwent a bilateral mammogram on 09-21-2024. This revealed Breast no evidence of malignancy, in the left breast focal asymmetry of the 6 to 7 o'clock position at a middle depth as well as in the 4 to 5 o'clock position at the anterior depth focal asymmetry. Ultrasound was recommended of the left breast. This was performed on 09-30-2024. This revealed in the left breast at 4:00 a 5 mm hypoechoic mass, and at 6:00 a 6 mm hypoechoic mass. 2 site ultrasound core biopsy was recommended. The patient subsequently underwent an ultrasound-guided core biopsy of the lesion at 6:00. The lesion at 4:00 was felt to not correlate with the mammographic focal asymmetry and follow-up of the 4:00 mass was recommended. The radiographs were personally reviewed and discussed with DR. Queen. The lesion at 6:00 revealed invasive lobular carcinoma grade 2. This is ER/VT positive. HER2 is equivocal. The lesion at 4:00 is felt to be suspecious as well and biopsy is recommended. She did not feel anything of concern in her breast prior to the mammogram. She gets mammograms regularly. She has not noted personally any nipple discharge or skin changes. However at the time of the mammogram the tech felt that there was discharge from the left breast. She is not complaining of any recent trauma or infection in the breast. Never had surgery on her breast in the past. Caffeine: 2 cups/day nicotine: used to smoke 1 PPD for about 30 years, stopped 2 years ago and vaped until 2 weeks ago and stopped chocolate: daily BCP: never used hormones: none Note Dr. Vanegas 10-14-24 reviewed Family History: sister: breast and lung cancer (BRCA test -, 20 years ago) mother: breast cancer sister : bilateral mastectomy older sister: leukemia maternal cousin: breast cancer Hormonal History: menarche: 14 , age at : 32 breast fed: no menopause: 47 Surgical history: Left oophorectomy secondary to endometriosis left ear cyst Medical history: Hypothyroid Hyperlipidemia Obesity Chronic kidney disease stage III Arthritis Diabetes no medicine History of seizure one or two last time 10 years ago tremors COPD Social History: nicotine: as above alcohol: none drugs: Marijuana, 1 joint a day, recreation Review of Systems - Constitutional Denies fever, Denies weight loss - EENT Eyes: denies blurred vision Ears: deny: decreased hearing Ears, nose, mouth and throat: Denies dysphagia - Breasts bilateral: as per HPI - Cardiovascular Denies chest pain, Denies shortness of breath - Respiratory Respiratory Comment(s): asthma - Gastrointestinal Reports as per HPI, Reports diarrhea - Genitourinary Genitourinary: Denies dysuria, Denies hematuria - Musculoskeletal Reports as per HPI - Integumentary Denies rash, Denies unusual bruising - Neurological Denies headaches, Denies syncope - Psychiatric Reports as per HPI - Endocrine Endocrine Comment(s): lost 50 pounds on [place] lost 50 pds, but taken off and gained 20 pounds Reports as per HPI - Hematologic/Lymphatic Reports easy bruising, Denies easy bleeding - Allergic/Immunologic Reports as per HPI, Reports seasonal allergies Past Medical History Past Medical History: Asthma, Diabetes Mellitus, Hyperlipidemia Additional Past Medical History / Comment(s): NIDDM History of Any Multi-Drug Resistant Organisms: None Reported Past Surgical History: No Surgical Hx Reported Past Anesthesia/Blood Transfusion Reactions: No Reported Reaction Past Psychological History: No Psychological Hx Reported Smoking Status: Never smoker Past Alcohol Use History: Rare Past Drug Use History: Marijuana Medications and Allergies Home Medications Medication Instructions Recorded Confirmed Type Albuterol Inhaler [Ventolin Hfa 2 puff INHALATION RT-Q4H PRN 05/11/15 10/21/24 History Inhaler] Cholecalciferol [Vitamin D3 (125 125 mcg PO DAILY 10/07/24 10/21/24 History Mcg = 5000 Iu)] Fluticasone Propion/Salmeterol 1 puff INHALATION RT-BID 10/07/24 10/21/24 History [Fluticasone-Salmeterol 250-50] Rosuvastatin Calcium [Crestor] 5 mg PO MOWEFR 10/07/24 10/21/24 History Metoprolol Succinate (ER) [Toprol 25 mg PO DAILY 14 Days #14 tab 10/08/24 10/21/24 Rx XL] Allergies Allergy/AdvReac Type Severity Reaction Status Date / Time Penicillins Allergy Unknown Verified 10/21/24 07:46 Surgical - Exam Vital Signs Temp Pulse Resp BP Pulse Ox 98.3 F 67 16 130/77 98 10/21/24 07:47 10/21/24 07:47 10/21/24 07:47 10/21/24 07:47 10/21/24 07:47 - General no distress - Eyes normal ocular movement - ENT no hearing loss - Neck trachea midline - Respiratory normal respiratory effort, clear to auscultation - Cardiovascular Rhythm: regular Heart Sounds: normal: S1, S2 - Abdomen Abdomen: soft, non tender, no guarding, no rigid, no rebound - Integumentary normal turgor - Neurologic no disoriented, no combative - Musculoskeletal normal gait - Psychiatric oriented to time, oriented to person, oriented to place, speech is normal, memory intact Breast Exam: BRA: large sports bra inspection: Bilateral grade 2/3 ptosis Palpation: Right breast: Multi positional exam no dominant masses or nodules of concern Right axilla: No adenopathy of concern Left breast: Ecchymosis at biopsy site, no hematoma or infection, no dominant masses or nodules of concern Left axilla: No adenopathy of concern Results Mammogram 09-21-24 and ultrasound 09-30-24 personally reviewed and discussed with radiology Dr. Queen Assessment and Plan Assessment: Impression: Left breast 6:00 invasive lobular carcinoma Left breast 4:00 suspicious abnormality and mammogram and ultrasound Fibrocystic breast disease Family history of breast cancer Asthma Diabetes Kidney disease Nicotine dependence recently stopped vaping Plan: Biopsy lesion 4:00 left breast Secondary to lobular carcinoma bilateral breast MRI Presentation of case at tumor board CC: Dr. Vanegas
== END ==
LOC: WWCWWP 07:30
PROVIDERS: ATTEND Surgery
DX: E11.22 Type 2 diabetes mellitus with diabetic chronic kidney disease (principal); C50.912 Malignant neoplasm of unspecified site of left female breast; N18.30 Chronic kidney disease, stage 3 unspecified; N60.19 Diffuse cystic mastopathy of unspecified breast; J45.909 Unspecified asthma, uncomplicated; F17.210 Nicotine dependence, cigarettes, uncomplicated; F12.90 Cannabis use, unspecified, uncomplicated; Z88.0 Allergy status to penicillin; Z80.3 Family history of malignant neoplasm of breast

== ENCOUNTER → 2024-10-28 | Day surgery (SDC) | payer BC ==
--- NOTE | 2024-11-07 12:25 | MM ---
Reason for Exam: Post Procedure Mammogram. Risk Values: Shira 5 year model risk: 1.0%. NCI Lifetime model risk: 4.6%. Tissue Density: Left: The breasts are heterogeneously dense, which may obscure small masses. Pathology Description: Location: 4 o'clock. Marker Left Behind. Needle Type: Celero Cores: 2 Gauge: 12 The procedure of ultrasound guided core biopsy was explained to the patient. Benefits, alternatives, and risks were discussed. An informed consent was then obtained. The patient was placed in supine positioning for imaging and for the procedure. Preprocedure ultrasound redemonstrates a vague 4 to 5 mm hypoechoic area at 4 clock position 1 cm distance from nipple. The overlying skin was prepped and draped in usual sterile fashion. Lidocaine buffered with bicarbonate was used as anesthetic into the skin and subcutaneous tissue up to area of concern in the left breast. Under ultrasound guidance, a vacuum assisted biopsy gun device was used to obtain 2 core samples. Following this, a biopsy clip was left in lesion. The patient tolerated the procedure well without any immediate complication. The patient was kept in the radiology department for short stay after the procedure and then discharged home in stable condition. Postprocedure mammogram: The patient was transferred to mammography for physician ordered post procedure mammogram for clip placement verification. This report is dictated separately. Impression: Successful, uncomplicated ultrasound guided core biopsy of second area of concern in the left breast, full pathology results to follow. Low index of suspicion noted at time of procedure for second lesion. [facility], , 10/28/2024 12:08 PM. Pathology Results: LEFT BREAST, 4:00, NEEDLE CORE BIOPSY: Benign breast with fibrocystic changes including focal columnar cell change/columnar cell hyperplasia. Overall Assessment: Suspicious, BI-RAD 4 Assessment: MG diagnostic mammo LT wo CAD. - Left: Suspicious, BI-RAD 4. Management: Surgical Consultation of the left breast. Electronically signed and approved by: Paul Kwok M.D.
== END ==
LOC: RADUSWWP 09:56
PROVIDERS: ATTEND Surgery
DX: N62 Hypertrophy of breast (principal); R92.8 Other abnormal and inconclusive findings on diagnostic imaging of breast
CPT/HCPCS: 88305; 77065; 19083; A4648

== ENCOUNTER → 2024-11-02 | Outpatient (CLI) | payer BC ==
--- NOTE | 2024-11-08 13:00 | BMR ---
EXAM DATE: 11/02/2024 EXAM DESCRIPTION: MRI-Breast Bilat (W/WO Contrast) INDICATION: Recent diagnosis of left breast cancer, 6 o'clock, 2 cm from the nipple invasive lobular additional biopsy left breast 4 o'clock 1 cm from the nipple with benign results. COMPARISON: PRIOR MRIs: None available. Correlation to mammograms: 09/21/2024. Correlation to ultrasound: 09/30/2024. CONTRAST: 9 cc Gadavist IV gadolinium contrast TECHNIQUE: Multiplanar multisequence MR imaging of both breasts was performed with a dedicated breast coil. Images were obtained before and after administration of IV gadolinium, using the standard breast mass protocol. Computer aided detection was utilized for interpretation. FINDINGS: LMP: Postmenopausal General breast composition: The breast is heterogeneously dense Background parenchymal enhancement: Mild to moderate RIGHT BREAST: The T2 weighted series shows no areas of abnormal signal intensity. Review of the dynamic series shows no early or abnormal enhancement. LEFT BREAST: Heterogeneously poorly enhancing non mass enhancement in the left breast at 12 o'clock/central estimates 4.1 x 2.8 x 1.8 cm. No discrete abnormal enhancement of the nipple or chest wall. In the lower inner right breast at approximately 5-6 o'clock 6 cm from the nipple, irregular mass estimating 1.1 cm with biopsy site artifact, likely corresponds to previous biopsy of invasive lobular carcinoma. LYMPH NODES: There is no evidence of internal mammary or axillary adenopathy. IMPRESSION: RIGHT BREAST: No MR evidence of malignancy. LEFT BREAST: 1. 1.1 cm mass at 5-6 o'clock, 6 cm from the nipple likely corresponds to previous site of invasive lobular carcinomabow tie clip 2. Additional non mass enhancement at approximately 12 o'clock, centrally measuring 4.1 x 2.8 x 1.8 cm. It is unclear if this was previously biopsied area described as 4 o'clock, 1 cm from the nipple given marker placement. Area appears suspicious. If breast conservation is planned, consider diagnostic left breast mammogram and targeted ultrasound for possible biopsy. Alternatively MRI guided biopsy could be performed. OVERALL ASSESSMENT -- BI-RADS 4: Suspicious for malignancy MTDD
== END | disposition home or self-care (01) ==
LOC: RADMRIMAIN 15:51
PROVIDERS: ATTEND Surgery
DX: C50.812 Malignant neoplasm of overlapping sites of left female breast (principal); N63.15 Unspecified lump in the right breast, overlapping quadrants
CPT/HCPCS: 77049; A9585

== ENCOUNTER → 2024-11-17 | Outpatient (CLI) | payer BC ==
[2024-11-17 08:38] VITALS: BP 149/77; PULSE 62; RESP 16; TEMP 98
--- NOTE | 2024-11-17 09:24 | P.BCPN ---
Subjective Progress Note Date: 11/17/24 Principal diagnosis: invasive lobular cancer left breast stage 1 History of Present Illness Consult date: 11-16-24 Reason for Consult: Invasive lobular carcinoma left breast Requesting physician: Kit Vanegas History of present illness: Tracee is a 64-year-old female seen in consultation for Dr. Vanegas with her sister regarding a biopsy-proven left breast invasive lobular carcinoma. She underwent a bilateral mammogram on 09-21-2024. This revealed Breast no evidence of malignancy, in the left breast focal asymmetry of the 6 to 7 o'clock position at a middle depth as well as in the 4 to 5 o'clock position at the anterior depth focal asymmetry. Ultrasound was recommended of the left breast. This was performed on 09-30-2024. This revealed in the left breast at 4:00 a 5 mm hypoechoic mass, and at 6:00 a 6 mm hypoechoic mass. 2 site ultrasound core biopsy was recommended. The patient subsequently underwent an ultrasound-guided core biopsy of the lesion at 6:00. The lesion at 4:00 was felt to not correlate with the mammographic focal asymmetry and follow-up of the 4:00 mass was recommended. The radiographs were personally reviewed and d iscussed with DR. Queen. The lesion at 6:00 revealed invasive lobular carcinoma grade 2. This is ER/OK positive. HER2 is equivocal. The lesion at 4:00 is felt to be suspicious as well and biopsy is recommended. She did not feel anything of concern in her breast prior to the mammogram. She gets mammograms regularly. She has not noted personally any nipple discharge or skin changes. However at the time of the mammogram the tech felt that there was discharge from the left breast. She is not complaining of any recent trauma or infection in the breast. Never had surgery on her breast in the past. Patient's case presented at tumor board on 11 01 24. Genetic testing has been ordered and this is pending. An MRI of the breast is ordered for November 08. A biopsy of the 4:00 site of the breast on the left side was performed on 10-28-2024, this was benign breast with fibrocystic changes but there was some concern that this may be discordant. Therefore if she is to have a lumpectomy n eedle localization of both the 4:00 and 6:00 site is recommended. Her HER2 marker is negative by FISH. I have called the patient and discussed all these things with the patient. He is understanding of these things. She has got a preoperative appointment on 11 17 24. 1. Presentation of case at tumor board 11-01-24 2. Ultrasound-guided core biopsy 4:00 lesion left breast was benign 3. MRI of the breast done on 11-02-24 4. Genetic testing/patient has appointment with Dr. Uriarte 5. Surgical date to be scheduled for a left breast needle localization lumpectomy of both the 4 and 6:00 site with possible oncoplastic tissue transfer, left sentinel node injection, left sentinel node biopsy, possible left axillary node dissection 6. Follow up appointment here in 2 weeks Caffeine: 2 cups/day nicotine: used to smoke 1 PPD for about 30 years, stopped 2 years ago and vaped until 2 weeks ago and stopped chocolate: daily BCP: never used hormones: none Note Dr. Vanegas 10-14-24 reviewed note 10-26-24 Dr. Uriaret reviewed; await genetic testing MRI 11-02-24 ? lesion at 4:00; biopsy done on 10-28-24; ? concordance MRI discussed and reviewed in detail with Dr. Tang; lesion noted at 6:00 invasive lobular lesion at 4 0Clock with clip benign, but concern concordant, can have localization and excision at the time of surgery or MRI guided repeat biopsy Family History: sister: breast and lung cancer (BRCA test -, 20 years ago) mother: breast cancer sister : bilateral mastectomy older sister: leukemia maternal cousin: breast cancer Hormonal History: menarche: 14 , age at : 32 breast fed: no menopause: 47 Surgical history: Left oophorectomy secondary to endometriosis left ear cyst Medical history: Hypothyroid Hyperlipidemia Obesity Chronic kidney disease stage III Arthritis Diabetes no medicine History of seizure one or two last time 10 years ago tremors COPD Social History: nicotine: as above alcohol: none drugs: Marijuana, 1 joint a day, recreation Review of Systems - Constitutional Denies fever, Denies weight loss - EENT Eyes: denies blurred vision Ears: deny: decreased hearing Ears, nose, mouth and throat: Denies dysphagia - Breasts bilateral: as per HPI - Cardiovascular Denies chest pain, Denies shortness of breath - Respiratory Respiratory Comment(s): asthma - Gastrointestinal Reports as per HPI, Reports diarrhea - Genitourinary Genitourinary: Denies dysuria, Denies hematuria - Musculoskeletal Reports as per HPI - Integumentary Denies rash, Denies unusual bruising - Neurological Denies headaches, Denies syncope - Psychiatric Reports as per HPI - Endocrine Endocrine Comment(s): lost 50 pounds on [place] lost 50 pds, but taken off and gained 20 pounds Reports as per HPI - Hematologic/Lymphatic Reports easy bruising, Denies easy bleeding - Allergic/Immunologic Reports as per HPI, Reports seasonal allergies Past Medical History Past Medical History: Asthma, Diabetes Mellitus, Hyperlipidemia Additional Past Medical History / Comment(s): NIDDM History of Any Multi-Drug Resistant Organisms: None Reported Past Surgical History: No Surgical Hx Reported Past Anesthesia/Blood Transfusion Reactions: No Reported Reaction Past Psychological History: No Psychological Hx Reported Smoking Status: Never smoker Past Alcohol Use History: Rare Past Drug Use History: Marijuana Medications and Allergies Home Medications Medication Instructions Recorded Confirmed Type Albuterol Inhaler [Ventolin Hfa 2 puff INHALATION RT-Q4H PRN 05/11/15 10/21/24 History Inhaler] Cholecalciferol [Vitamin D3 (125 125 mcg PO DAILY 10/07/24 10/21/24 History Mcg = 5000 Iu)] Fluticasone Propion/Salmeterol 1 puff INHALATION RT-BID 10/07/24 10/21/24 History [Fluticasone-Salmeterol 250-50] Rosuvastatin Calcium [Crestor] 5 mg PO MOWEFR 10/07/24 10/21/24 History Metoprolol Succinate (ER) [Toprol 25 mg PO DAILY 14 Days #14 tab 10/08/24 10/21/24 Rx XL] Allergies Allergy/AdvReac Type Severity Reaction Status Date / Time Penicillins Allergy Unknown Verified 10/21/24 07:46 Surgical - Exam Vital Signs Temp Pulse Resp BP Pulse Ox 98.3 F 67 16 130/77 98 10/21/24 07:47 10/21/24 07:47 10/21/24 07:47 10/21/24 07:47 10/21/24 07:47 - General no distress - Eyes normal ocular movement - ENT no hearing loss - Neck trachea midline - Respiratory normal respiratory effort, clear to auscultation - Cardiovascular Rhythm: regular Heart Sounds: normal: S1, S2 - Abdomen Abdomen: soft, non tender, no guarding, no rigid, no rebound - Integumentary normal turgor - Neurologic no disoriented, no combative - Musculoskeletal normal gait - Psychiatric oriented to time, oriented to person, oriented to place, speech is normal, memory intact Breast Exam: BRA: large sports bra inspection: Bilateral grade 2/3 ptosis Palpation: Right breast: Multi positional exam no dominant masses or nodules of concern Right axilla: No adenopathy of concern Left breast: Ecchymosis at biopsy site, no hematoma or infection, no dominant masses or nodules of concern Left axilla: No adenopathy of concern Results Mammogram 09-21-24 and ultrasound 09-30-24 personally reviewed and discussed with radiology Dr. Queen Assessment and Plan Assessment: Impression: Left breast 6:00 invasive lobular carcinoma Left breast 4:00 suspicious abnormality and mammogram and ultrasound Fibrocystic breast disease Family history of breast cancer Asthma Diabetes Kidney disease Nicotine dependence recently stopped vaping Plan: Biopsy lesion 4:00 left breast Secondary to lobular carcinoma bilateral breast MRI Presentation of case at tumor board CC: Dr. Vanegas Additional CC's: Kit Vanegas Objective - Vital Signs Vital Signs: Intake & Output 11/16/24 11/17/24 11/17/24 18:59 06:59 18:59 Weight 92.986 kg - Constitutional General appearance: Present: cooperative - EENT Eyes: Present: EOMI ENT: Present: hearing grossly normal - Neck Neck: Present: normal ROM - Breast Breast-Narrative: Breast Exam: BRA: large sports bra inspection: Bilateral grade 2/3 ptosis Palpation: Right breast: Multi positional exam no dominant masses or nodules of concern Right axilla: No adenopathy of concern Left breast: Ecchymosis at biopsy site, no hematoma or infection, no dominant masses or nodules of concern Left axilla: No adenopathy of concern Ptosis: Grade 2: Right Breast Ptosis, Left Breast Ptosis Breast: both: normal Right Breast Palpation (Multi-positional): No dominant masses, Fibrocystic Changes Left Breast Palpation (Multi-positional): No dominant masses, Fibrocystic Cuellar es Right Axilla Palpation: No adenopathy of concern Left Axilla Palpation: No adenopathy of concern - Respiratory Respiratory: bilateral: CTA - Cardiovascular Rhythm: regular Heart sounds: normal: S1, S2 - Musculoskeletal Musculoskeletal: Present: gait normal - Psychiatric Psychiatric: Present: A&O x's 3, appropriate affect, intact judgment & insight Assessment and Plan Plan: Impression: Left breast 6:00 invasive lobular carcinoma Left breast 4:00 suspicious abnormality and mammogram and ultrasound/ biopsy done on 10-28-24 benign Fibrocystic breast disease Family history of breast cancer Asthma Diabetes Kidney disease Nicotine dependence recently stopped vaping MRI of breast on 11-02-24 right breast no areas of concern; left breast lesion at 6 oclock and lesion at 4:00 recommend biopsy done Plan: Biopsy lesion 4:00 left breast done on 10-28-24 benign Secondary to lobular carcinoma bilateral breast MRI done 11-02-24 Presentation of case at tumor board done on 11-01-24 Her MRI and mammogram and ultrasound were reviewed in detail with Dr. Novoa from radiology. It is felt that the clip for the 4:00 biopsy site is in the MRI area of concern. Therefore the option was given to the patient of an MRI biopsy of that area versus needle localization of the area and resection at the time of her lumpectomy. She would like to avoid an additional biopsy if possible and therefore the surgical procedure will be: Needle localization of 4:00 lesion in the left breast, needle localization of 6:00 lesion in the left breast, excisional lumpectomy of both of the sites. [place] node biopsy injection left breast, sentinel node biopsy, possible left axillary node dissection. Possible oncoplastic tissue transfer left breast. She does not want a mastopexy incision. Consent: I have discussed the risks, benefits and alternative therapies for the above-mentioned procedure and for both sedation/analgesia as well as necessary blood product administration, if indicated, as they pertain to this patient. The patient has indicated understanding and acceptance of the risks and procedures discussed. Risk area include but not limited to bleeding, infection, reaction to the anesthetic. If the margins were to be positive then further tissue acquisition may be necessary. With the axilla there may be some decrease sensation to the inner arm. She could have some injury to the thoracodorsal or long thoracic nerves with winged scapula. She understands and wishes to proceed. CC: Dr. Vanegas Prep Education Provided - Preoperative Education Given Pre-Op Kit Given Date: 11/17/24 - Functional Assessment Performed?: Yes (arm abduction) - Smoking Cessation Education Provided?: No ( none smoker)
== END ==
LOC: WWCWWP 08:12
PROVIDERS: ATTEND Surgery
DX: C50.919 Malignant neoplasm of unspecified site of unspecified female breast (principal); N60.19 Diffuse cystic mastopathy of unspecified breast; N28.9 Disorder of kidney and ureter, unspecified; J45.909 Unspecified asthma, uncomplicated; E11.9 Type 2 diabetes mellitus without complications; F17.210 Nicotine dependence, cigarettes, uncomplicated; F12.90 Cannabis use, unspecified, uncomplicated; Z88.0 Allergy status to penicillin

== ENCOUNTER → 2024-12-05 | Outpatient (CLI) | payer BC ==
[2024-12-05 13:57] LABS: Prothrombin Time 10.8 sec (10.0-12.5)
[2024-12-05 13:58] LABS: Partial Thromboplastin Time 24.4 sec (22.0-30.0)
[2024-12-05 14:12] LABS: Appearance,Urine Cloudy (Clear); Bacteria,Urine Rare /hpf; Bilirubin,Urine Negative (Negative); Blood,Urine Small (Negative); Color,Urine Colorless; Glucose,Urine (UA) Negative (Negative); Ketones,Urine Negative (Negative); Leukocyte Esterase,Urine Trace (Negative); Nitrite,Urine Negative (Negative); PH, Urine 6.5 (5.0-8.0); Protein,Urine Negative (Negative); RBC,Urine 1 /hpf (0-5); Specific Gravity,Urine 1.014 (1.001-1.035); Squamous Epithelial Cell,Urine 8 /hpf (0-4); Urobilinogen,Urine <2.0 mg/dL (<2.0); WBC,Urine 5 /hpf (0-5)
[2024-12-05 18:28] LABS: Basophils # (A) 0.11 X 10*3/uL (0.00-0.10); Basophils % (A) 1.4 %; Eosinophils % (A) 3.9 %; HGB 15.2 g/dL (12.0-15.0); Lymphocytes # (A) 2.48 X 10*3/uL (0.90-5.00); Lymphocytes % (A) 32.1 %; MCH 30.1 pg (27.0-32.0); MCHC 31.7 g/dL (32.0-37.0); Mean Platelet Volume 11.1 FL (9.5-12.2); Monocytes # (A) 0.52 X 10*3/uL (0.20-1.00); Monocytes % (A) 6.7 %; NRBC Per 100 WBC 0 X 10*3/uL (0.00-0.01); Neutrophils % (A) 55.6 %; Platelet Count 286 X 10*3/uL (140-440); RBC 5.05 X 10*6/uL (4.10-5.20); RDW 13.2 % (11.5-14.5); WBC 7.73 X 10*3/uL (4.50-10.00)
[2024-12-05 19:05] LABS: ALT 24 U/L (8-44); AST 24 U/L (13-35); Albumin 4.9 g/dL (3.8-4.9); Albumin/Globulin Ratio 2.13 Ratio (1.60-3.17); Alkaline Phosphatase 77 U/L (41-126); Blood Urea Nitrogen 17.8 mg/dL (9.0-27.0); Calcium 10.1 mg/dL (8.7-10.3); Carbon Dioxide 27.2 mmol/L (21.6-31.8); Chloride 100 mmol/L (96-109); Globulin 2.3 g/dL (1.6-3.3); Glucose 110 mg/dL (70-110); Potassium 4.3 mmol/L (3.5-5.5); Sodium 141 mmol/L (135-145); T4, Free (Free Thyroxine) 1.08 ng/dL (0.80-1.80); Total Bilirubin 0.7 mg/dL (0.3-1.2); Total Protein 7.2 g/dL (6.2-8.2)
== END | disposition home or self-care (01) ==
LOC: LABPAT 11:45
PROVIDERS: ATTEND Family Medicine
DX: Z01.812 Encounter for preprocedural laboratory examination (principal); E03.9 Hypothyroidism, unspecified; E55.9 Vitamin D deficiency, unspecified
CPT/HCPCS: 36415; 80053; 81001; 82306; 83036; 84439; 84443; 85025; 85610; 85730

== ENCOUNTER 2024-12-07 07:36 | Day surgery (SDC) | payer BC ==
[2024-12-02 17:43] VITALS: BMI 30.4
[~2024-12-07 07:36] MED LIST: HYDROmorphone 0.5 MG/0.5 ML SYRINGE IVP PRN; METHYLENE BLUE 50 MG, DEXTROSE 5% IN WATER 50 ML MISCELLANE ONE; fentaNYL (PF) 50 MCG/ML 2 ML AMP IV PRN
[2024-12-07] MEDS: ACETAMINOPHEN TAB 500 MG TAB PO PRN (08:20)
[2024-12-07] MEDS: ALPRAZolam 0.5 MG TAB PO STA (08:21)
[2024-12-07] MEDS: LACTATED RINGERS 1,000 ML IV SCH (08:21)
[2024-12-07 08:32] LABS: Glucose,Whole Blood 142 mg/dL (70-110)
[2024-12-07] MEDS: IV FLUID CONTINUATION 1,000 ML IV ONE (08:41)
[2024-12-07] MEDS: LIDOCAINE 1% INJ 10MG/ML (20 ML MDV) SQ ONE ×2 (09:32→12:19)
[2024-12-07] MEDS: SODIUM BICARB 8.4% 50 ML VIAL (1 MEQ/ML) MISCELLANE ONE (09:32)
[2024-12-07] MEDS: METHYLENE BLUE 50 MG/10 ML VIAL MISCELLANE ONE (09:46)
--- NOTE | 2024-12-07 10:12 | P.NAPBC ---
NAPBC Queries - NAPBC Queries Was patient's case review presented at [facility] tumor board? If no, comment.: Yes Was patient's pathology reviewed at [facility]? If no, comment.: Yes Was breast conservation surgery offered? If no, comment.: Yes Was sentinel node biopsy offered? If no, comment.: Yes Was diagnosis confirmed by percutaneous core biopsy? If no, comment.: Yes Is patient mastectomy patient?: No Was a preop referral to reconstructive surgeon offered?: No Clinical Stage: stage 1 invasive lobular cancer left breast
[2024-12-07] MEDS: ONDANSETRON 4 MG/2 ML VIAL IVP STA (10:30)
[2024-12-07] MEDS: HEPARIN SODIUM,PORCINE 5,000 UNIT/ML 1 ML VIAL SQ PRN (10:31)
[2024-12-07] MEDS: DEXAMETHASONE SOD PHOSPHATE 4 MG/ML 1 ML VIAL IVP STA (10:31)
[2024-12-07] MEDS ORDERED: HYDROmorphone (PF) 1 MG/ML ONE (10:32)
[2024-12-07] MEDS ORDERED: PROPOFOL 10 MG/ML 20 ML VIAL IV ONE (10:32)
[2024-12-07] MEDS ORDERED: fentaNYL (PF) 50 MCG/ML 2 ML AMP ONE (10:32)
[2024-12-07] MEDS ORDERED: LIDOCAINE 1% INJ 10MG/ML (20 ML MDV) ONE (10:32)
[2024-12-07] MEDS ORDERED: diphenhydrAMINE 50 MG/ML 1 ML VIAL ONE (10:32)
[2024-12-07] MEDS: ceFAZolin 2 GM in DEXTROSE 5% IN WATER 50 ML IVPB PRN (10:35)
--- NOTE | 2024-12-07 10:37 | NM ---
EXAMINATION TYPE: NM sentinel node injection DATE OF EXAM: 12/07/2024 COMPARISON: MRI bilateral breasts November 02, 2024 and older studies. CLINICAL INDICATION: Female, 64 years old with history of C50.812 MALIGNANT NEOPLASM OVERLAPPING SITE S LEFT; left breast neoplasm 6:00 position. TECHNIQUE AND FINDINGS: The procedure of sentinel lymph node injection was explained to the patient. The benefits, alternatives, and risks were discussed. An informed consent was then obtained. Overlying skin is cleaned with sterile alcohol. Following this, 513 uCi Tc99m Tilmanocept was inject ed in the upper outer aspect of the left nipple intradermally. The patient tolerated the procedure well without any immediate complication. The patient was kept in the radiology department for short stay after the procedure and then taken to surgery for surgical p rocedure what is presumed intraoperative gamma probe will be used for sentinel lymph node detection. IMPRESSION: Left breast radiotracer injection for sentinel node localization as above. [facility], , 12/07/2024 10:35 AM
[2024-12-07] MEDS: LACTATED RINGERS 1,000 ML IV ONE (12:16)
--- NOTE | 2024-12-07 12:24 | P.BCAON ---
Date of Procedure: 12/07/24 Preoperative Diagnosis: Left breast invasive lobular carcinoma Postoperative Diagnosis: Same Procedure(s) Performed: Needle localization lumpectomy 2 sites in the left breast, sentinel node biopsy left axilla Anesthesia: JOE Surgeon: Sierra Nova Estimated Blood Loss (ml): 10 IV fluids (ml): 900 Pathology: other (Left sentinel node, breast/invasive lobular carcinoma) Condition: stable Disposition: same day Indications for Procedure: Biopsy-proven left breast invasive lobular carcinoma Operative Findings: Fibrofatty breast tissue Description of Procedure: The patient was first seen in the radiology department for needle localization of the 6:00 and 4:00 area were performed. As well methylene blue 1 cc was injected into each site. In addition the patient had periareolar injection of radiotracer for sentinel node biopsy. The patient was then brought to the operative suite. Following induction of anesthesia the neoprobe was used to interrogate the axilla. Radioactivity had traveled to the axilla. Therefore the left breast and axilla were prepped and draped in a sterile fashion. The area of the axilla was approached initially. Using the neoprobe to identify the area of greatest radioactivity an incision was made in the axilla. This was carried to the area of greatest radioactivity. This was grasped using an Allis clamp and excised using the harmonic scalpel. After reassured that hemostasis was attained and interrogation of the tissue revealed a 10-second count of 8201. A palpable node was identified. The background 10-second count was 21. The wound was well irrigated. The deep tissues were closed using 3-0 Vicryl suture. The subcutaneous tissue was closed using 3-0 Vicryl suture. The skin was closed using 4-0 Monocryl. The area of the breast was then approached. It was felt that both the 6:00 and 4:00 lesion could be approached through a periareolar incision. The periareolar incision was formed in the area of the 6:00 needle was dissected to the needle entrance. This was brought through the skin into the specimen. Surrounding tissue was excised being careful to be sure that the area of blue stained tissue was excised. Following this the area of the 4:00 needle was dissected and this was brought through the skin into the specimen as well. Dissection was performed in the area of blue which had been injected at that site was excised as well. The specimen was then painted for orientation. Following this radiograph of the specimen revealed that both wires were present in the clip near the 6:00/invasive lobular carcinoma was present. The clip at the 4 o'clock position was not seen. However after review with radiology was felt that the tissue that was at this site was resected and that this area was of low suspicion and that we would not need to go back and take additional tissue at this time. The wound again was well irrigated. Titanium clips were placed in the cavity. Surgicel in powder form was placed. The cavity was reapproximated with the deep tissues using 3-0 Vicryl suture. The subcutaneous tissue was reapproximated with 3-0 Vicryl suture. The skin was reapproximated with a 4-0 Monocryl. 10 cc of 1% lidocaine were injected into the incisions. Surgical glue was applied. All instrument and sponge counts were correct at the end of the case. The patient tolerated the procedure in stable condition. - Sentinal Node Biopsy Operation performed with curative intent: Yes Tracer(s) used in upfront surgery (non-neoadjuvant): radioactive tracer Tracer(s) used in the neoadjuvant setting: N/A All nodes present at end of dye-filled channel removed: N/A All significantly radioactive nodes were removed: Yes All palpably suspicious nodes were removed: Yes
[2024-12-07 12:35] VITALS: TEMP 96.9
[2024-12-07 13:35] LABS: Glucose,Whole Blood 142 mg/dL (70-110)
[2024-12-07 14:16] VITALS: BP 142/78; PULSE 63; RESP 18
== END 2024-12-07 14:26 | disposition home or self-care (01) ==
LOC: OR 07:36
PROVIDERS: ATTEND Surgery
DX: C50.812 Malignant neoplasm of overlapping sites of left female breast (principal); Z17.0 Estrogen receptor positive status [ER+]; Z17.21 Progesterone receptor positive status; E11.22 Type 2 diabetes mellitus with diabetic chronic kidney disease; I12.9 Hypertensive chronic kidney disease with stage 1 through stage 4 chronic kidney disease, or unspecified chronic kidney disease; N18.30 Chronic kidney disease, stage 3 unspecified; E78.5 Hyperlipidemia, unspecified; E03.9 Hypothyroidism, unspecified; J44.89 Other specified chronic obstructive pulmonary disease; R25.1 Tremor, unspecified; N60.12 Diffuse cystic mastopathy of left breast; N60.11 Diffuse cystic mastopathy of right breast; N64.81 Ptosis of breast; E66.9 Obesity, unspecified; Z79.899 Other long term (current) drug therapy; Z87.891 Personal history of nicotine dependence; Z86.69 Personal history of other diseases of the nervous system and sense organs; Z88.0 Allergy status to penicillin; Z80.3 Family history of malignant neoplasm of breast
CPT/HCPCS: 38525; 19301; 88342; 88307; 88341; 76098; 19281; 19282; 38792; C1819; A9520; J1200; J1644; J1100; J0690; J2405; J2003; J3010; J1171; J2704; Q9968

== ENCOUNTER → 2024-12-15 | Outpatient (CLI) | payer BC ==
[2024-12-15 08:14] VITALS: BP 135/81; PULSE 56; RESP 16; TEMP 97.9
--- NOTE | 2024-12-15 09:06 | P.BCPO ---
Progress Note - Text Progress Note Date: 12/15/24 The patient is a 64-year-old female status post needle localization of 2 sites in the left breast and a sentinel node biopsy on 12 07 24. Pathology results are pending, on verbal report there is a potential of a +3 mm area in the medial margin. Verbally the sentinel lymph node is negative and other margins are negative. The invasive component of tumor is 9 mm. Examination: Lungs: Clear Heart: Regular rate and rhythm Incision axilla and breast clean and dry Impression: Awaiting final pathology report Plan: If medial margin is positive then would recommend reexcision of medial margin If medial margin is negative patient will be seen by radiation oncology and medical oncology Follow-up next week Post Op Education - Post Op Education Post Op Education Provided Date: 12/15/24 - Functional Assessment Performed?: Yes (passed arm abduction)
== END ==
LOC: WWCWWP 08:00
PROVIDERS: ATTEND Surgery
DX: Z75.1 Person awaiting admission to adequate facility elsewhere (principal); F17.200 Nicotine dependence, unspecified, uncomplicated; Z88.0 Allergy status to penicillin

== ENCOUNTER → 2024-12-22 | Outpatient (CLI) | payer BC ==
--- NOTE | 2024-12-22 13:49 | MM ---
Reason for Exam: Follow-up at short interval from prior study. Patient History: Breast cancer, left, age 64. 12/07/2024, Lumpectomy on the Left side. 12/07/2024, MG pre op loc each addl LT on the Left side. 12/07/2024, Malignant MG pre op needle loc LT on the left side. 10/28/2024, US biopsy breast VAD LT on the Left side. Prior Study Comparison: 10/28/2024 Left MG diagnostic mammo LT wo CAD., [facility]. Tissue Density: Left: The breasts are heterogeneously dense, which may obscure small masses. Findings: Analyzed By CAD. New surgical changes with clips in the left breast middle depth. Targeted two biopsy clips prior to surgery are now not identified. New increased density medially and inferior to the clips extending anteriorly is presumed posttreatment change with new skin thickening. Overall Assessment: Probably benign, BI-RAD 3 Management: Diagnostic Mammogram of the left breast in 6 months. The 2 biopsy clips are now successfully excised in the interval. Results were given to the patient verbally at the time of exam. Patient should continue monthly self-breast exams. A clinical breast exam by your physician is recommended on an annual basis. This exam should not preclude additional follow-up of suspicious palpable abnormalities. Note on Shira scores and lifetime risk: 1. A Shira score greater than 3% is considered moderate risk. If this is the case, consider specialist referral to assess eligibility for a risk reducing agent. 2. If overall lifetime risk for the development of breast cancer is 20% or higher, the patient may qualify for future screening with alternating mammogram and breast MRI. [facility], , 12/22/2024 1:47 PM. Electronically signed and approved by: Paul Kwok M.D.
== END | disposition home or self-care (01) ==
LOC: RADMAMWWP 13:16
PROVIDERS: ATTEND Surgery
DX: R92.8 Other abnormal and inconclusive findings on diagnostic imaging of breast (principal); R92.332 Mammographic heterogeneous density, left breast; Z85.3 Personal history of malignant neoplasm of breast
CPT/HCPCS: 77061; 77065

== ENCOUNTER → 2024-12-22 | Outpatient (CLI) | payer BC ==
[2024-12-22 12:42] VITALS: BP 128/83; PULSE 54; RESP 17; TEMP 98.2
--- NOTE | 2024-12-22 13:22 | P.PN ---
Subjective Progress Note Date: 12/22/24 Subjective Progress Note Date: 12-22-24 Principal diagnosis: invasive lobular cancer left breast 12-22-24 left breast invasive lobular cancer 12-07-24 Tp1Np(is)M0G2ER+Pr+Her2- (+medial margin 3mm)) The patient underwent needle localization of the 4:00 and 6:00 site of the left breast on 12-07-24, she had a left breast lumpectomy and sentinel node biopsy. Pathology revealed isolated tumor cells in the sentinel lymph node. And a 3 mm positive medial margin. All other margins were negative. 2 clips were localized however only the clip in the lesion of greatest suspicion at 6:00 was retrieved. The second lesion had been biopsied by ultrasound and was benign but there was a question as to whether this was concordant. The area was felt to have been adequately sampled although the clip at 4:00 was not retrieved. Caffeine: 2 cups/day nicotine: used to smoke 1 PPD for about 30 years, stopped 2 years ago and vaped until 2 weeks ago and stopped chocolate: daily BCP: never used hormones: none Note Dr. Vanegas 10-14-24 reviewed note 10-26-24 Dr. Uriarte reviewed; genetic testing (-) MRI 11-02-24 ? lesion at 4:00; biopsy done on 10-28-24; ? concordance MRI discussed and reviewed in detail with Dr. Tang; lesion noted at 6:00 invasive lobular lesion at 4 0Clock with clip benign, but concern concordant, had localization and excision at the time of surgery; the clip was not retrieved Arm abduction test past Family History: sister: breast and lung cancer (BRCA test -, 20 years ago) mother: breast cancer sister : bilateral mastectomy older sister: leukemia maternal cousin: breast cancer Hormonal History: menarche: 14 , age at : 32 breast fed: no menopause: 47 Surgical history: Left oophorectomy secondary to endometriosis left ear cyst Left breast needle localization lumpectomy/sentinel node biopsy Medical history: Hypothyroid Hyperlipidemia Obesity Chronic kidney disease stage III Arthritis Diabetes no medicine History of seizure one or two last time 10 years ago tremors COPD Social History: nicotine: as above alcohol: none drugs: Marijuana, 1 joint a day, recreation Review of Systems - Constitutional Denies fever, Denies weight loss - EENT Eyes: denies blurred vision Ears: deny: decreased hearing Ears, nose, mouth and throat: Denies dysphagia - Breasts bilateral: as per HPI - Cardiovascular Denies chest pain, Denies shortness of breath - Respiratory Respiratory Comment(s): asthma - Gastrointestinal Reports as per HPI, Reports diarrhea - Genitourinary Genitourinary: Denies dysuria, Denies hematuria - Musculoskeletal Reports as per HPI - Integumentary Denies rash, Denies unusual bruising - Neurological Denies headaches, Denies syncope - Psychiatric Reports as per HPI - Endocrine Endocrine Comment(s): lost 50 pounds on [place] lost 50 pds, but taken off and gained 20 pounds Reports as per HPI - Hematologic/Lymphatic Reports easy bruising, Denies easy bleeding - Allergic/Immunologic Reports as per HPI, Reports seasonal allergies Past Medical History Past Medical History: Asthma, Diabetes Mellitus, Hyperlipidemia Additional Past Medical History / Comment(s): NIDDM History of Any Multi-Drug Resistant Organisms: None Reported Past Surgical History: No Surgical Hx Reported Past Anesthesia/Blood Transfusion Reactions: No Reported Reaction Past Psychological History: No Psychological Hx Reported Smoking Status: Never smoker Past Alcohol Use History: Rare Past Drug Use History: Marijuana Medications and Allergies Home Medications Medication Instructions Recorded Confirmed Type Albuterol Inhaler [Ventolin Hfa 2 puff INHALATION RT-Q4H PRN 05/11/15 10/21/24 History Inhaler] Cholecalciferol [Vitamin D3 (125 125 mcg PO DAILY 10/07/24 10/21/24 History Mcg = 5000 Iu)] Fluticasone Propion/Salmeterol 1 puff INHALATION RT-BID 10/07/24 10/21/24 History [Fluticasone-Salmeterol 250-50] Rosuvastatin Calcium [Crestor] 5 mg PO MOWEFR 10/07/24 10/21/24 History Metoprolol Succinate (ER) [Toprol 25 mg PO DAILY 14 Days #14 tab 10/08/24 10/21/24 Rx XL] Allergies Allergy/AdvReac Type Severity Reaction Status Date / Time Penicillins Allergy Unknown Verified 10/21/24 07:46 Objective - Vital Signs Vital signs: Vital Signs Temp 98.2 F 12/22/24 12:39 Pulse 54 L 12/22/24 12:39 Resp 17 12/22/24 12:39 BP 128/83 12/22/24 12:39 Pulse Ox 98 12/22/24 12:39 FiO2 Intake & Output 12/21/24 12/22/24 12/22/24 18:59 06:59 18:59 Weight 95.254 kg - Constitutional General appearance: Present: cooperative - EENT Eyes: Present: EOMI ENT: Present: hearing grossly normal - Neck Neck: Present: normal ROM - Respiratory Respiratory: bilateral: CTA - Cardiovascular Rhythm: regular Heart sounds: normal: S1, S2 - Integumentary Integumentary: Present: normal turgor - Musculoskeletal Musculoskeletal: Present: gait normal - Psychiatric Psychiatric: Present: A&O x's 3, appropriate affect, intact judgment & insight - Additional findings Additional findings: Breast examination: Inspection: Well-healed scar left breast and axilla Palpation: Right breast: Multi positional exam no dominant masses or nodules of concern Right axilla: No adenopathy of concern Left breast: Well-healed scar left breast and axilla: No dominant masses or nodules of concern, no evidence of infection or hematoma Left axilla: Well-healed scar no evidence of any adenopathy of concern Assessment and Plan Assessment: Impression: Patient's status post left breast lumpectomy and sentinel node biopsy on 11 10 24. Positive medial margin 3 mm, questionable 4:00 lesion clip removed Plan: Repeat left breast mammogram to evaluate of clip at 4:00 lesion is still present/this is being done today If 4:00 clip is absent reexcision of medial margin left breast with possible oncoplastic tissue transfer If clip is still present from 4:00 lesion needle localization of the clip and reexcision of medial margin as well as the area of the 4:00 prior lesion, with possible oncoplastic tissue transfer Risk and benefits of the procedure discussed with the patient and her sister. Risk include but are not limited to bleeding, infection, reaction to the anesthetic. If the margins were to be positive again then possible mastectomy may be recommended. They understand and wish to proceed. Arm abduction test passed Preoperative education given to the patient and her sister Consent: I have discussed the risks, benefits and alternative therapies for the above-mentioned procedure and for both sedation/analgesia as well as necessary blood product administration, if indicated, as they pertain to this patient. The patient has indicated understanding and acceptance of the risks and procedures discussed.
== END ==
LOC: WWCWWP 12:23
PROVIDERS: ATTEND Surgery
DX: C50.912 Malignant neoplasm of unspecified site of left female breast (principal); F17.200 Nicotine dependence, unspecified, uncomplicated; Z98.890 Other specified postprocedural states; Z88.0 Allergy status to penicillin

== ENCOUNTER → 2025-01-13 | Outpatient (CLI) | payer BC ==
--- NOTE | 2025-01-13 09:38 | P.BCPO ---
Progress Note - Text Progress Note Date: 01/13/25 invasive lobular cancer left breast left breast invasive lobular cancer 12-07-24 Tp1Np(is)M0G2ER+Pr+Her2- (+medial margin 3mm)) resected on 12-07-24 The patient underwent needle localization of the 4:00 and 6:00 site of the left breast on 12-07-24, she had a left breast lumpectomy and sentinel node biopsy. Pathology revealed isolated tumor cells in the sentinel lymph node. And a 3 mm positive medial margin. All other margins were negative. 2 clips were localized however only the clip in the lesion of greatest suspicion at 6:00 was retrieved. The second lesion had been biopsied by ultrasound and was benign but there was a question as to whether this was concordant. The area was felt to have been adequately sampled although the clip at 4:00 was not retrieved. Repeat radiograph of the breast revealed that the 4:00 clip was no longer present prior to surgical reexcision. She underwent reexcision of the area of concern on 01-03-2025. Pathology on 01-03-2025 revealed left breast cavity/reexcision: Focal lobular neoplasia in the form of atypical lobular hyperplasia/lobular carcinoma in situ adjacent to cystic and inflamed lumpectomy cavity. All margins benign. Additional new anterior margin benign, new medial margin benign.. Examination: Lungs: Clear Heart: Regular rate and rhythm Incision axilla and right breast clean and dry, small seroma in the breast Patient has had an Oncotype ordered and results are pending After informed consent the area of concern in the left breast will attempt to be aspirated. Using an 18-gauge needle on a 20 cc syringe the breast was prepped using alcohol. 105 cc of serous fluid was aspirated with complete resolution of the seroma. Impression/Plan: Patient doing well postoperative She has already had an appointment with radiation oncology She will have appointment with medical oncology Will follow-up here 1 week CC; Dr. Vanegas Post Op Education - Post Op Education Post Op Education Provided Date: 01/13/25 - Functional Assessment Performed?: Yes (arm abduction passed) Path Report - Was patient given path report? Path Report Date Given: 01/13/25
[2025-01-13 09:47] VITALS: BP 119/77; PULSE 70; RESP 18; TEMP 98.2
== END ==
LOC: WWCWWP 09:08
PROVIDERS: ATTEND Surgery
DX: Z98.890 Other specified postprocedural states (principal); F12.90 Cannabis use, unspecified, uncomplicated; F17.200 Nicotine dependence, unspecified, uncomplicated; Z88.0 Allergy status to penicillin

== ENCOUNTER → 2025-01-17 | Outpatient (CLI) | payer BC ==
[2025-01-17 08:17] VITALS: BP 150/70; PULSE 58; RESP 17; TEMP 97.5
--- NOTE | 2025-01-17 08:20 | P.BCPO ---
Progress Note - Text Progress Note Date: 01/17/25 01/17/25 invasive lobular cancer left breast left breast invasive lobular cancer 12-07-24 Tp1Np(is)M0G2ER+Pr+Her2- (+medial margin 3mm)) resected on 12-07-24 The patient underwent needle localization of the 4:00 and 6:00 site of the left breast on 12-07-24, she had a left breast lumpectomy and sentinel node biopsy. Pathology revealed isolated tumor cells in the sentinel lymph node. And a 3 mm positive medial margin. All other margins were negative. 2 clips were localized however only the clip in the lesion of greatest suspicion at 6:00 was retrieved. The second lesion had been biopsied by ultrasound and was benign but there was a question as to whether this was concordant. The area was felt to have been adequately sampled although the clip at 4:00 was not retrieved. Repeat radiograph of the breast revealed that the 4:00 clip was no longer present prior to surgical reexcision. She underwent reexcision of the area of concern on 01-03-2025. Pathology on 01-03-2025 revealed left breast cavity/reexcision: Focal lobular neoplasia in the form of atypical lobular hyperplasia/lobular carcinoma in situ adjacent to cystic and inflamed lumpectomy cavity. All margins benign. Additional new anterior margin benign, new medial margin benign. Examination: Lungs: Clear Heart: Regular rate and rhythm Incision axilla and right breast clean and dry, no seroma to drain on today's examination Patient has had an Oncotype ordered and results are pending Impression/Plan: Patient doing well postoperative She has already had an appointment with radiation oncology She will have appointment with medical oncology Will follow-up here 1 month, follow up sooner any concerns CC; Dr. Vanegas
== END ==
LOC: WWCWWP 08:06
PROVIDERS: ATTEND Surgery
DX: Z98.890 Other specified postprocedural states (principal); F17.200 Nicotine dependence, unspecified, uncomplicated; F12.90 Cannabis use, unspecified, uncomplicated; Z88.0 Allergy status to penicillin

== ENCOUNTER → 2025-03-09 | Outpatient (CLI) | payer BC ==
[2025-03-09 14:10] VITALS: BP 137/77; PULSE 67; RESP 17; TEMP 98.3
--- NOTE | 2025-03-09 14:45 | P.PN ---
Subjective Progress Note Date: 03/09/25 Principal diagnosis: left breast invasive lobular cancer Tp1Np(is)M0ER+Pr+Her2-G2 (+medoa; margins 3mm) resected on 12-07-24 Subjective Progress Note Date: 03-09-25 Principal diagnosis: left breast invasive lobular cancer 12-07-24 Tp1Np(is)M0G2ER+Pr+Her2- (+medial margin 3mm)) The patient underwent needle localization and lumpectomy of the 4:00and 6:00 site of the left breast on 12-07-24 with [facility]. Lesion noted at 6:00 invasive lobular lesion at 4 0Clock with clip benign, but concern concordant, had localization and excision at the time of surgery; the clip was not retrieved The SNB had isoloated tumor cells, and a 3 mm + surgical medial margin of the 6:00 position. At the time of the original surgery on 12 07 24 2 clips were localized but the 4:00 clip was not noted in the surgical specimen. Repeat radiograph of the breast prior to reexcision revealed that the 4:00 clip was no longer present in the breast. Pathology on 01-03-2025 revealed left breast cavity/reexcision, focal lobular neoplasia in the form of atypical lobular hyperplasia/LCIS adjacent to cystic and inflamed lumpectomy cavity. All margins benign. Caffeine: 2 cups/day nicotine: used to smoke 1 PPD for about 30 years, stopped 2 years ago and vaped until 2 weeks ago and stopped chocolate: daily BCP: never used hormones: none Note Dr. Vanegas 10-14-24 reviewed note 10-26-24 Dr. Uriarte reviewed; genetic testing (-) MRI 11-02-24 ? lesion at 4:00; biopsy done on 10-28-24; ? concordance MRI discussed and reviewed in detail with Dr. Tang; note medical oncology 01-24-25 Dr. Uriarte reviewed follow up for hormonal therapy note radiation oncology reviewed: 02-02-25: patient to have radiation therapy Family History: sister: breast and lung cancer (BRCA test -, 20 years ago) mother: breast cancer sister : bilateral mastectomy older sister: leukemia maternal cousin: breast cancer Hormonal History: menarche: 14 , age at : 32 breast fed: no menopause: 47 Surgical history: Left oophorectomy secondary to endometriosis left ear cyst Left breast needle localization lumpectomy/sentinel node biopsy Medical history: Hypothyroid Hyperlipidemia Obesity Chronic kidney disease stage III Arthritis Diabetes no medicine History of seizure one or two last time 10 years ago tremors COPD Social History: nicotine: as above alcohol: none drugs: Marijuana, 1 joint a day, recreation Review of Systems - Constitutional Denies fever, Denies weight loss - EENT Eyes: denies blurred vision Ears: deny: decreased hearing Ears, nose, mouth and throat: Denies dysphagia - Breasts bilateral: as per HPI - Cardiovascular Denies chest pain, Denies shortness of breath - Respiratory Respiratory Comment(s): asthma - Gastrointestinal Reports as per HPI, Reports diarrhea - Genitourinary Genitourinary: Denies dysuria, Denies hematuria - Musculoskeletal Reports as per HPI - Integumentary Denies rash, Denies unusual bruising - Neurological Denies headaches, Denies syncope - Psychiatric Reports as per HPI - Endocrine Endocrine Comment(s): lost 50 pounds on [place] lost 50 pds, but taken off and gained 20 pounds Reports as per HPI - Hematologic/Lymphatic Reports easy bruising, Denies easy bleeding - Allergic/Immunologic Reports as per HPI, Reports seasonal allergies Past Medical History Past Medical History: Asthma, Diabetes Mellitus, Hyperlipidemia Additional Past Medical History / Comment(s): NIDDM History of Any Multi-Drug Resistant Organisms: None Reported Past Surgical History: No Surgical Hx Reported Past Anesthesia/Blood Transfusion Reactions: No Reported Reaction Past Psychological History: No Psychological Hx Reported Smoking Status: Never smoker Past Alcohol Use History: Rare Past Drug Use History: Marijuana Medications and Allergies Home Medications Medication Instructions Recorded Confirmed Type Albuterol Inhaler [Ventolin Hfa 2 puff INHALATION RT-Q4H PRN 05/11/15 10/21/24 History Inhaler] Cholecalciferol [Vitamin D3 (125 125 mcg PO DAILY 10/07/24 10/21/24 History Mcg = 5000 Iu)] Fluticasone Propion/Salmeterol 1 puff INHALATION RT-BID 10/07/24 10/21/24 History [Fluticasone-Salmeterol 250-50] Rosuvastatin Calcium [Crestor] 5 mg PO MOWEFR 10/07/24 10/21/24 History Metoprolol Succinate (ER) [Toprol 25 mg PO DAILY 14 Days #14 tab 10/08/24 10/21/24 Rx XL] Allergies Allergy/AdvReac Type Severity Reaction Status Date / Time Penicillins Allergy Unknown Verified 10/21/24 07:46 Objective - Vital Signs Vital signs: Vital Signs Temp 98.3 F 03/09/25 14:07 Pulse 67 03/09/25 14:07 Resp 17 03/09/25 14:07 BP 137/77 03/09/25 14:07 Pulse Ox 97 03/09/25 14:07 FiO2 Intake & Output 03/08/25 03/09/25 03/09/25 18:59 06:59 18:59 Weight 104.326 kg - Constitutional General appearance: Present: cooperative - EENT Eyes: Present: EOMI ENT: Present: hearing grossly normal - Neck Neck: Present: normal ROM - Respiratory Respiratory: bilateral: CTA - Cardiovascular Rhythm: regular Heart sounds: normal: S1, S2 - Integumentary Integumentary: Present: normal turgor - Musculoskeletal Musculoskeletal: Present: gait normal - Psychiatric Psychiatric: Present: A&O x's 3, appropriate affect, intact judgment & insight - Additional findings Additional findings: Breast examination: Inspection: Well-healed scar left breast and axilla Palpation: Right breast: Multi positional exam no dominant masses or nodules of concern Right axilla: No adenopathy of concern Left breast: Well-healed scar left breast and axilla: No dominant masses or nodules of concern, no evidence of infection or hematoma, probable seroma at lumpectomy site Left axilla: Well-healed scar no evidence of any adenopathy of concern Assessment and Plan Assessment: Impression/Plan: Patient's status post left breast lumpectomy and sentinel node biopsy on 11 10 24. Positive medial margin 3 mm, questionable 4:00 lesion clip removed; reexcision no evidence of any residual disease Patient is starting radiation therapy Patient will have hormone therapy following the radiation therapy Probable seroma at lumpectomy site will attempt aspiration Additional CC's: Kit Vanegas
== END ==
LOC: WWCWWP 13:51
PROVIDERS: ATTEND Surgery
DX: C50.912 Malignant neoplasm of unspecified site of left female breast (principal); F17.200 Nicotine dependence, unspecified, uncomplicated; Z98.890 Other specified postprocedural states; Z88.0 Allergy status to penicillin